=== PATIENT | female | born 1935 | race Caucasian/White ===

== ENCOUNTER 2016-08-20 11:16 | Inpatient (IN) | payer MEDICARE ==
[2016-08-20] MEDS ORDERED: ALBUTEROL NEBULIZED 2.5 MG/3 ML INHALATION STA (11:36)
[2016-08-20] MEDS ORDERED: IPRATROPIUM 0.5 MG/2.5 ML NEBU INHALATION STA (11:36)
[2016-08-20] MEDS ORDERED: methylPREDNISolone SOD SUCCI 125 MG/2 ML VIAL IV STA (11:36)
--- NOTE | 2016-08-20 11:46 | ED ---
General Adult HPI - General Chief complaint: Shortness of Breath Stated complaint: JAY Time Seen by Provider: 08/20/16 11:36 Source: patient, RN notes reviewed, old records reviewed Mode of arrival: ambulatory Limitations: no limitations - History of Present Illness Initial comments: This is a 80-year-old female ER for evaluation. This patient presents for evaluation of shortness of breath, severe shortness of a cough congestion, patient has history of COPD and high blood pressure. Denies chest pain. Patient was of breath has been getting progressively worse is debris into his at home with no help. Patient also complains of chest pain. Chest pain related to cough and congestion, chest pain related to difficulty breathing. Patient denies significant recent hospitalization - Related Data Home Medications Medication Instructions Recorded Confirmed Carvedilol [Coreg] 25 mg PO BID 08/20/16 08/20/16 Fluticasone/Vilanterol [Breo 1 inhalation PO RT-DAILY 08/20/16 08/20/16 Ellipta 100-25 Mcg Inhaler] Lisinopril [Prinivil] 20 mg PO BID 08/20/16 08/20/16 clonazePAM [KlonoPIN] 0.25 mg PO DAILY PRN 08/20/16 08/20/16 Allergies Allergy/AdvReac Type Severity Reaction Status Date / Time morphine AdvReac Hallucinati Verified 08/20/16 11:40 ons Review of Systems ROS Statement: Those systems with pertinent positive or pertinent negative responses have been documented in the HPI. ROS Other: All systems not noted in ROS Statement are negative. Past Medical History Past Medical History: COPD, Hypertension History of Any Multi-Drug Resistant Organisms: None Reported Past Surgical History: Hysterectomy Additional Past Surgical History / Comment(s): carotid end. Past Psychological History: No Psychological Hx Reported Smoking Status: Light tobacco smoker Past Alcohol Use History: Rare Past Drug Use History: None Reported General Exam Limitations: no limitations General appearance: alert, in no apparent distress, anxious, in distress Head exam: Present: atraumatic, normocephalic, normal inspection Eye exam: Present: normal appearance, PERRL, EOMI. Absent: scleral icterus, conjunctival injection, periorbital swelling ENT exam: Present: normal exam, mucous membranes moist Neck exam: Present: normal inspection. Absent: tenderness, meningismus, lymphadenopathy Respiratory exam: Present: normal lung sounds bilaterally, respiratory distress , wheezes, accessory muscle use, decreased breath sounds, prolonged expiratory. Absent: rales, rhonchi, stridor Cardiovascular Exam: Present: regular rate, normal rhythm, normal heart sounds. Absent: systolic murmur, diastolic murmur, rubs, gallop, clicks GI/Abdominal exam: Present: soft, normal bowel sounds. Absent: distended, tenderness, guarding, rebound, rigid Extremities exam: Present: normal inspection, full ROM, normal capillary refill. Absent: tenderness, pedal edema, joint swelling, calf tenderness Back exam: Present: normal inspection Neurological exam: Present: alert, oriented X3, CN II-XII intact Psychiatric exam: Present: normal affect, normal mood Skin exam: Present: warm, dry, intact, normal color. Absent: rash Course Vital Signs 08/20/16 08/20/16 08/20/16 11:27 11:56 11:59 Temperature 98.4 F Pulse Rate 80 78 Respiratory 22 20 Rate Blood Pressure 225/90 O2 Sat by Pulse 86 L Oximetry 08/20/16 08/20/16 08/20/16 12:07 12:20 12:37 Temperature Pulse Rate 74 78 74 Respiratory 20 20 Rate Blood Pressure 210/89 204/126 O2 Sat by Pulse 96 98 Oximetry 08/20/16 08/20/16 12:55 13:04 Temperature 98.2 F Pulse Rate 80 71 Respiratory 18 Rate Blood Pressure 168/74 O2 Sat by Pulse 94 L Oximetry - Reevaluation(s) Reevaluation #1: 08/20/16 13:52 Patient with minimal improvement prolonged angina, past EKG Findings - EKG Comments: EKG Findings:: EKG shows normal sinus rhythm rate of 76, OH 204, QRS 100, QTC 452 Medical Decision Making - Medical Decision Making 80 female in the ER for evaluation of shortness of breath severe shortness breath history of COPD, severe COPD exacerbation at this time. Patient will be made for prolonged treatments and steroids, IV resuscitation. - Lab Data Result diagrams: 08/20/16 12:15 08/20/16 12:15 Lab Results 08/20/16 08/20/16 08/20/16 Range/Units 12:15 12:15 12:15 WBC 11.5 H (3.8-10.6) k/uL RBC 4.88 (3.80-5.40) m/uL Hgb 12.4 (11.4-16.0) gm/dL Hct 39.3 (34.0-46.0) % MCV 80.4 (80.0-100.0) fL MCH 25.3 (25.0-35.0) pg MCHC 31.5 (31.0-37.0) g/dL RDW 18.1 H (11.5-15.5) % Plt Count 312 (150-450) k/uL Neutrophils % 61 % Lymphocytes % 17 % Monocytes % 16 % Eosinophils % 2 % Basophils % 1 % Neutrophils # 6.9 (1.3-7.7) k/uL Lymphocytes # 2.0 (1.0-4.8) k/uL Monocytes # 1.8 H (0-1.0) k/uL Eosinophils # 0.2 (0-0.7) k/uL Basophils # 0.1 (0-0.2) k/uL Manual Slide Review Performed Poikilocytosis (manual Present Anisocytosis Slight Microcytosis Slight PT (9.0-12.0) sec INR (<1.1) APTT (22.0-30.0) sec Sodium 138 (137-145) mmol/L Potassium 4.5 (3.5-5.1) mmol/L Chloride 95 L (98-107) mmol/L Carbon Dioxide 32 H (22-30) mmol/L Anion Gap 11 mmol/L BUN 10 (7-17) mg/dL Creatinine 0.48 L (0.52-1.04) mg/dL Est GFR (MDRD) Af Amer >60 (>60 ml/min/1.73 sqM) Est GFR (MDRD) Non-Af >60 (>60 ml/min/1.73 sqM) Glucose 109 H (74-99) mg/dL Calcium 9.6 (8.4-10.2) mg/dL Magnesium 2.2 (1.6-2.3) mg/dL Total Bilirubin 0.9 (0.2-1.3) mg/dL AST 22 (14-36) U/L ALT 26 (9-52) U/L Alkaline Phosphatase 75 (38-126) U/L Total Creatine Kinase 42 (30-135) U/L CK-MB (CK-2) 1.4 (0.0-2.4) ng/mL CK-MB (CK-2) Rel Index 3.3 Troponin I <0.012 (0.000-0.034) ng/mL NT-Pro-B Natriuret Pep pg/mL Total Protein 7.2 (6.3-8.2) g/dL Albumin 4.2 (3.5-5.0) g/dL 08/20/16 08/20/16 Range/Units 12:15 12:15 WBC (3.8-10.6) k/uL RBC (3.80-5.40) m/uL Hgb (11.4-16.0) gm/dL Hct (34.0-46.0) % MCV (80.0-100.0) fL MCH (25.0-35.0) pg MCHC (31.0-37.0) g/dL RDW (11.5-15.5) % Plt Count (150-450) k/uL Neutrophils % % Lymphocytes % % Monocytes % % Eosinophils % % Basophils % % Neutrophils # (1.3-7.7) k/uL Lymphocytes # (1.0-4.8) k/uL Monocytes # (0-1.0) k/uL Eosinophils # (0-0.7) k/uL Basophils # (0-0.2) k/uL Manual Slide Review Poikilocytosis (manual Anisocytosis Microcytosis PT 11.3 (9.0-12.0) sec INR 1.1 (<1.1) APTT 25.3 (22.0-30.0) sec Sodium (137-145) mmol/L Potassium (3.5-5.1) mmol/L Chloride (98-107) mmol/L Carbon Dioxide (22-30) mmol/L Anion Gap mmol/L BUN (7-17) mg/dL Creatinine (0.52-1.04) mg/dL Est GFR (MDRD) Af Amer (>60 ml/min/1.73 sqM) Est GFR (MDRD) Non-Af (>60 ml/min/1.73 sqM) Glucose (74-99) mg/dL Calcium (8.4-10.2) mg/dL Magnesium (1.6-2.3) mg/dL Total Bilirubin (0.2-1.3) mg/dL AST (14-36) U/L ALT (9-52) U/L Alkaline Phosphatase (38-126) U/L Total Creatine Kinase (30-135) U/L CK-MB (CK-2) (0.0-2.4) ng/mL CK-MB (CK-2) Rel Index Troponin I (0.000-0.034) ng/mL NT-Pro-B Natriuret Pep 2540 pg/mL Total Protein (6.3-8.2) g/dL Albumin (3.5-5.0) g/dL Critical Care Time Critical Care Time: Yes Total Critical Care Time: 31 Disposition Clinical Impression: Acute exacerbation of chronic obstructive airways disease, Hypoxia Disposition: ADMITTED IP TO THIS HOSP Condition: Fair Referrals: Graeme Harkins MD [Primary Care Provider] - 1-2 days
[2016-08-20] MEDS ORDERED: ENALAPRILAT 1.25 MG/ML 1 ML VIAL IVP STA (12:08)
[2016-08-20] MEDS ORDERED: HYDROmorphone 1 MG/ML 1 ML SYRINGE IVP STA (12:08)
[2016-08-20 12:21] LABS: Anisocytosis Slight; Basophils # (A) 0.1 k/uL (0-0.2); Basophils % (A) 1 %; CHCM 32.3; Eosinophils # (A) 0.2 k/uL (0-0.7); Eosinophils % (A) 2 %; HCT 39.3 % (34.0-46.0); HDW 2.78; HGB 12.4 gm/dL (11.4-16.0); Luc # (Auto) 0.48; Luc % (Auto) 4; Lymphocytes % (A) 17 %; MCH 25.3 pg (25.0-35.0); MCHC 31.5 g/dL (31.0-37.0); MCV 80.4 fL (80.0-100.0); Mean Platelet Volume 7.4; Microcytosis Slight; Monocytes # (A) 1.8 k/uL (0-1.0); Monocytes % (A) 16 %; Neutrophils # (A) 6.9 k/uL (1.3-7.7); Neutrophils % (A) 61 %; RBC 4.88 m/uL (3.80-5.40); RDW 18.1 % (11.5-15.5); WBC 11.5 k/uL (3.8-10.6); WBC (Perox) 11.54
[2016-08-20 12:32] LABS: ALT 26 U/L (9-52); AST 22 U/L (14-36); Alkaline Phosphatase 75 U/L (38-126); Anion Gap 11 mmol/L; Blood Urea Nitrogen 10 mg/dL (7-17); Calcium 9.6 mg/dL (8.4-10.2); Carbon Dioxide 32 mmol/L (22-30); Chloride 95 mmol/L (98-107); Glucose 109 mg/dL (74-99); Magnesium 2.2 mg/dL (1.6-2.3); Non-African American GFR(MDRD) >60 (>60 ml/min/1.73 sqM); Potassium 4.5 mmol/L (3.5-5.1); Sodium 138 mmol/L (137-145); Total Bilirubin 0.9 mg/dL (0.2-1.3); Total Protein 7.2 g/dL (6.3-8.2)
[2016-08-20 12:34] LABS: INR 1.1 (<1.1); Partial Thromboplastin Time 25.3 sec (22.0-30.0); Prothrombin Time 11.3 sec (9.0-12.0)
[2016-08-20 12:43] LABS: Creatine Kinase 42 U/L (30-135)
[2016-08-20 12:56] LABS: Creatine Kinase MB 1.4 ng/mL (0.0-2.4); Troponin I <0.012 ng/mL (0.000-0.034)
[2016-08-20 13:06] LABS: Manual Review Performed
--- NOTE | 2016-08-20 13:24 | XR ---
EXAMINATION TYPE: XR chest 2V DATE OF EXAM: 08/20/2016 1:18 PM COMPARISON: 08/19/2010 TECHNIQUE: PA and lateral views submitted. HISTORY: Difficulty breathing FINDINGS: The lungs are clear and there is no pneumothorax, pleural effusion, or focal pneumonia. Hyperinflati on suggests COPD and there is apical pleural-based thickening bilaterally. Degenerative change of the spine noted. Atherosclerotic change aorta. Arthropathy of the shoulder. IMPRESSION: 1. No acute process.
[2016-08-20] MEDS: SODIUM CHLORIDE 0.9% 1,000 ML IV SCH ×2 (14:38→23:33)
[2016-08-20] MEDS: IPRATROPIUM-ALBUTEROL 3 ML NEB INHALATION SCH ×2 (15:52→19:13)
[2016-08-20] MEDS: methylPREDNISolone SOD SUCCI 125 MG/2 ML VIAL IV SCH ×2 (17:42→23:33)
[2016-08-20] MEDS ORDERED: IPRATROPIUM-ALBUTEROL 3 ML NEB INHALATION PRN (19:09)
[2016-08-21] MEDS: methylPREDNISolone SOD SUCCI 125 MG/2 ML VIAL IV SCH ×3 (06:31→17:15)
[2016-08-21] MEDS: IPRATROPIUM-ALBUTEROL 3 ML NEB INHALATION SCH ×4 (07:34→20:24)
[2016-08-21] MEDS: LISINOPRIL 20 MG TAB PO SCH ×2 (09:39→21:47)
[2016-08-21] MEDS: FAMOTIDINE 20 MG TAB PO SCH ×2 (09:39→22:17)
[2016-08-21] MEDS: ENOXAPARIN 40 MG/0.4 ML SYRINGE SQ SCH ×2 (09:39→09:41)
[2016-08-21] MEDS: CARVEDILOL 12.5 MG TAB PO SCH ×2 (09:39→17:14)
[2016-08-21] MEDS: SODIUM CHLORIDE 0.9% 1,000 ML IV SCH ×2 (09:39→21:49)
[2016-08-21 13:41] LABS: Glucose,Whole Blood 119 mg/dL (75-99)
[2016-08-21] MEDS ORDERED: amLODIPine 5 MG TAB PO STA (14:01)
[2016-08-21] MEDS ORDERED: NICOTINE 14MG/24HR PATCH TRANSDERM STA (14:03)
--- NOTE | 2016-08-21 14:07 | P.HPIM ---
History of Present Illness H&P Date: 08/21/16 Chief Complaint: Shortness of breath with congestion Patient is a 80-year-old female, patient of Dr. Harkins in the outpatient setting, with a medical history significant for COPD, hypertension, osteoarthritis, glaucoma, anxiety, and nicotine dependence. Patient currently uses 2 L of oxygen at night. Patient presented to the emergency department with complaints of shortness of breath, cough, congestion, and chest discomfort with coughing. No histories of fevers, chills, nausea, vomiting, or abdominal pain. Chest x-ray with evidence of COPD without pleural effusion or focal pneumonia. Admission labs with evidence of mild leukocytosis with elevated monocytes, troponin less than 0.012, BNP 2540. Blood pressure on admission 225/ 90, oxygen saturation 86% on room air. Patient was started on IV Solu-Medrol, nebulized updraft treatments, given 1 dose of Dilaudid, 1 dose of IV Vasotec, and admitted to the medical floor with consult to Dr. Ruiz for pulmonary service. Upon examination, patient is sitting at the side of the bed and is very tearful and anxious particularly about the possibility of not being able to return to work on . Patient reports improvement in breathing. Patient reports nonproductive cough. Denies fevers, chills, nausea, vomiting, shortness of breath, chest pain, or abdominal pain. Denies leg swelling. Denies constipation or diarrhea. Denies dysuria, urgency, or hematuria. Blood pressure 166/76 this morning. Patient remains on 3 L nasal cannula with adequate saturation of 90%. Afebrile. Past Medical History Past Medical History: COPD, Eye Disorder, Hypertension, Osteoarthritis (OA) Additional Past Medical History / Comment(s): O2 2 LITERS N/C AT HS, BEGINNING OF GLAUCOMA History of Any Multi-Drug Resistant Organisms: None Reported Past Surgical History: Hysterectomy Additional Past Surgical History / Comment(s): LT carotid end. Past Anesthesia/Blood Transfusion Reactions: No Reported Reaction Past Psychological History: No Psychological Hx Reported Smoking Status: Current every day smoker Past Alcohol Use History: Rare Additional Past Alcohol Use History / Comment(s): WHEN ASKED HOW LONG SHE HAS SMOKED FOR STATED "TOO LONG PACK OR MORE PER DAY" BUT SINCE DECEMBER HAD GONE DOWN TO 1/2 PPD AND NONE IN PAST 3 DAYS SINCE DIFF BREATHING. Past Drug Use History: None Reported - Past Family History Father Family Medical History: No Reported History Mother Additional Family Medical History / Comment(s): GALLBLADDER PROBLEMS Sister(s) Family Medical History: Cancer Additional Family Medical History / Comment(s): NOT SURE TYPE Medications and Allergies Home Medications Medication Instructions Recorded Confirmed Type Carvedilol [Coreg] 25 mg PO BID 08/20/16 08/20/16 History Fluticasone/Vilanterol [Breo 1 inhalation PO RT-DAILY 08/20/16 08/20/16 History Ellipta 100-25 Mcg Inhaler] Lisinopril [Prinivil] 20 mg PO BID 08/20/16 08/20/16 History clonazePAM [KlonoPIN] 0.25 mg PO DAILY PRN 08/20/16 08/20/16 History Allergies Allergy/AdvReac Type Severity Reaction Status Date / Time morphine AdvReac Hallucinati Verified 08/20/16 11:40 ons Physical Exam Vitals: Vital Signs Temp Pulse Pulse Pulse Resp BP BP 08/21/16 11:13 96 08/21/16 11:05 92 08/21/16 08:00 78 81 18 08/21/16 07:45 96 08/21/16 07:37 88 08/21/16 07:00 96.5 F L 81 18 166/76 08/21/16 01:33 84 08/21/16 01:24 84 08/20/16 23:00 97.2 F L 76 16 173/73 08/20/16 19:23 84 08/20/16 19:17 87 08/20/16 16:21 97.1 F L 78 16 161/89 08/20/16 16:05 80 08/20/16 15:55 76 08/20/16 14:38 98.4 F 72 16 187/83 Pulse Ox 08/21/16 11:13 08/21/16 11:05 08/21/16 08:00 08/21/16 07:45 08/21/16 07:37 08/21/16 07:00 90 L 08/21/16 01:33 08/21/16 01:24 08/20/16 23:00 97 08/20/16 19:23 08/20/16 19:17 08/20/16 16:21 95 08/20/16 16:05 08/20/16 15:55 08/20/16 14:38 93 L Intake and Output 08/20/16 08/21/16 08/21/16 22:59 06:59 14:59 Other: Voiding Method Toilet Toilet # Voids 1 1 GENERAL: Pt awake and alert, well-nourished, and in no acute distress. HEAD: Atraumatic, normocephalic. EYES: Pupils equal and round. Sclera anicteric, conjunctiva are normal. ENT: Moist mucous membranes. NECK: Supple without lymphadenopathy or JVD. LUNGS: Breath sounds coarse to auscultation bilaterally. No wheezes, rales, or rhonchi. HEART: Heart S1, S2, no S3 or S4. Regular rate and rhythm. No murmurs, rubs or gallops. ABDOMEN: Soft, nontender, nondistended, normoactive bowel sounds. No guarding, no rebound. No masses or organomegaly appreciated. EXTREMITIES: Palpable peripheral pulses. No edema. No calf tenderness. NEUROLOGICAL: Pt oriented x 3. No focal deficits. Strength and sensation grossly intact. PSYCH: Anxious. SKIN: Warm, dry, intact. Normal turgor. No rashes or lesions. Results CBC & Chem 7: 08/20/16 12:15 08/20/16 12:15 Labs: Abnormal Lab Results - Last 24 Hours (Table) 08/21/16 Range/Units 13:38 POC Glucose (mg/dL) 119 H (75-99) mg/dL Chest x-ray: report reviewed Thrombosis Risk Factor Assmnt - DVT/VTE Prophylaxis DVT/VTE Prophylaxis: Pharmacologic Prophylaxis ordered, Mechanical Prophylaxis ordered - Choose All That Apply Any of the Below Risk Factors Present?: Yes Each Factor Represents 1 point: Abnormal pulmonary function (COPD) Other Risk Factors: Yes Each Risk Factor Represents 3 Points: Age 75 years or older Other congenital or acquired thrombophilia - If yes, enter type in comment: No Thrombosis Risk Factor Assessment Total Risk Factor Score: 4 Thrombosis Risk Factor Assessment Level: Moderate Risk Assessment and Plan Plan: Impression and plan: 1. Exacerbation of chronic obstructive pulmonary disease. Pulmonary service consulted, recommendations pending. Continue inhaled and systemic steroids, nebulized updraft treatments, and IV hydration. 2. Acute hypoxic respiratory failure. Continue supplemental oxygen to keep oxygen saturation greater than 92%. 3. Hypertension. Continue lisinopril 20 mg by mouth twice a day. Continue Coreg 25 mg by mouth before meals twice a day. We'll add Norvasc 5 mg for better blood pressure control. 4. Anxiety. Continue Klonopin pain 0.25 mg by mouth daily when necessary. 5. Glaucoma. 6. Nicotine dependence. Smoking cessation encouraged. Will start nicotine patch. 7. Peripheral arterial disease. 8. GI prophylaxis. Continue Pepcid 20 mg by mouth twice a day. 9. DVT prophylaxis. Continue Lovenox 40 mg subcu daily. 10. Repeat CBC and BMP in a.m. The above impression and plan have been discussed and directed by Dr. Harkins. Bobby WILSON acting as scribe for Dr. Harkins.
[2016-08-21] MEDS: clonazePAM 0.5 MG TAB PO PRN (14:36)
--- NOTE | 2016-08-21 17:05 | P.CNPUL ---
History of Present Illness Consult date: 08/21/16 Requesting physician: Graeme Harkins Reason for consult: COPD Chief complaint: Sinus congestion, shortness of breath History of present illness: This is a very pleasant 80-year-old female patient who follows with Dr. Harkins as her primary care physician. She has a history of hypertension and chronic obstructive pulmonary disease. She has continued and ongoing tobacco dependence. She wears nighttime oxygen. She is maintained on Breo in the outpatient setting. She presented here yesterday after being seen in the office for complaints of increasing shortness of breath. She was somewhat hypoxic at 86% on room air. Her chest x-ray did not reveal any acute pulmonary process. Influenza screen is negative. She was admitted for COPD exacerbation. She is seen today in consultation on the regular medical floor. She is awake and alert in no acute distress. She states she started breathing better today as compared to yesterday. She is somewhat anxious and teary-eyed for being here as she has a part-time job. She denies any fever, chills or night sweats. No hemoptysis. A productive cough of white to clear sputum. Currently afebrile. Review of Systems GENERAL EXAM: Alert, active, comfortable in no apparent distress. HEAD: Normocephalic. EYES: Normal reaction of pupils, equal size. NOSE: Clear with pink turbinates. THROAT: No erythema or exudates. NECK: No masses, no JVD. CHEST: No chest wall deformity. LUNGS: Equal air entry with no end expiratory wheeze. Diminished. CVS: S1 and S2 normal with no audible murmurs, regular rhythm. ABDOMEN: No hepatosplenomegaly, normal bowel sounds, no guarding or rigidity. SPINE: No scoliosis or deformity SKIN: No rashes CENTRAL NERVOUS SYSTEM: No focal deficits, tone is normal in all 4 extremities. Extremities: There is no significant peripheral edema. No clubbing, no cyanosis. Peripheral pulses are intact. Past Medical History Past Medical History: COPD, Eye Disorder, Hypertension, Osteoarthritis (OA) Additional Past Medical History / Comment(s): O2 2 LITERS N/C AT HS, BEGINNING OF GLAUCOMA History of Any Multi-Drug Resistant Organisms: None Reported Past Surgical History: Hysterectomy Additional Past Surgical History / Comment(s): LT carotid end. Past Anesthesia/Blood Transfusion Reactions: No Reported Reaction Past Psychological History: No Psychological Hx Reported Smoking Status: Current every day smoker Past Alcohol Use History: Rare Additional Past Alcohol Use History / Comment(s): WHEN ASKED HOW LONG SHE HAS SMOKED FOR STATED "TOO LONG PACK OR MORE PER DAY" BUT SINCE DECEMBER HAD GONE DOWN TO 1/2 PPD AND NONE IN PAST 3 DAYS SINCE DIFF BREATHING. Past Drug Use History: None Reported - Past Family History Father Family Medical History: No Reported History Mother Additional Family Medical History / Comment(s): GALLBLADDER PROBLEMS Sister(s) Family Medical History: Cancer Additional Family Medical History / Comment(s): NOT SURE TYPE Medications and Allergies Home Medications Medication Instructions Recorded Confirmed Type Carvedilol [Coreg] 25 mg PO BID 08/20/16 08/20/16 History Fluticasone/Vilanterol [Breo 1 inhalation PO RT-DAILY 08/20/16 08/20/16 History Ellipta 100-25 Mcg Inhaler] Lisinopril [Prinivil] 20 mg PO BID 08/20/16 08/20/16 History clonazePAM [KlonoPIN] 0.25 mg PO DAILY PRN 08/20/16 08/20/16 History Allergies Allergy/AdvReac Type Severity Reaction Status Date / Time morphine AdvReac Hallucinati Verified 08/20/16 11:40 ons Physical Exam Vitals: Vital Signs Temp Pulse Pulse Pulse Resp BP Pulse Ox 08/21/16 15:28 88 08/21/16 15:19 88 08/21/16 15:00 96.7 F L 84 16 178/71 96 08/21/16 11:13 96 08/21/16 11:05 92 08/21/16 08:00 78 81 18 08/21/16 07:45 96 08/21/16 07:37 88 08/21/16 07:00 96.5 F L 81 18 166/76 90 L 08/21/16 01:33 84 08/21/16 01:24 84 08/20/16 23:00 97.2 F L 76 16 173/73 97 08/20/16 19:23 84 08/20/16 19:17 87 Intake and Output 08/21/16 08/21/16 08/21/16 06:59 14:59 22:59 Other: Voiding Method Toilet # Voids 1 3 Results - Laboratory Findings CBC and BMP: 08/20/16 12:15 08/20/16 12:15 PT/INR, D-dimer PT 11.3 sec (9.0-12.0) 08/20/16 12:15 INR 1.1 (<1.1) 08/20/16 12:15 Abnormal lab findings: Abnormal Labs 08/21/16 13:38 POC Glucose (mg/dL) 119 H - Diagnostic Findings Chest x-ray: image reviewed (COPD. No acute pulmonary process.) Assessment and Plan Plan: Impression: #1 Acute exacerbation of chronic obstructive pulmonary disease. #2 Acute on chronic hypoxic respiratory failure. Utilizes oxygen at home in the evenings. #3 Chronic and ongoing tobacco dependence. #4 Hypertension. #5 Anxiety. Plan: The patient was seen and evaluated by Dr. Ruiz. Her chest x-ray and labs were reviewed. We'll continue her current medications including bronchodilators 4 times a day and when necessary, Symbicort, IV Solu-Medrol. She is educated regarding the importance of complete smoking cessation and a NicoDerm patch is in place. She is on Lovenox for DVT prophylaxis and Pepcid for GI prophylaxis. She would benefit from an outpatient workup including full pulmonary function testing to evaluate the severity of her COPD and make recommendations regarding maintenance medications in addition to her Breo. We' ll increase her activity as tolerated. We will continue to follow and make further recommendations based on her clinical status.
[2016-08-21 17:07] LABS: Glucose,Whole Blood 160 mg/dL (75-99)
[2016-08-21] MEDS: SYMBICORT 80-4.5 MCG INHALER INHALATION SCH (20:23)
[2016-08-21 21:38] LABS: Glucose,Whole Blood 142 mg/dL (75-99)
[2016-08-21] MEDS: INSULIN LISPRO (humaLOG) 300 UNIT/3 ML VIAL SQ SCH (21:51)
[2016-08-22] MEDS: methylPREDNISolone SOD SUCCI 125 MG/2 ML VIAL IV SCH ×4 (00:44→17:27)
[2016-08-22 07:34] LABS: Glucose,Whole Blood 139 mg/dL (75-99)
[2016-08-22] MEDS: IPRATROPIUM-ALBUTEROL 3 ML NEB INHALATION SCH ×4 (08:15→16:18)
[2016-08-22] MEDS: SYMBICORT 80-4.5 MCG INHALER INHALATION SCH (08:16)
[2016-08-22] MEDS: CARVEDILOL 12.5 MG TAB PO SCH (08:29)
[2016-08-22] MEDS: ENOXAPARIN 40 MG/0.4 ML SYRINGE SQ SCH (08:29)
[2016-08-22] MEDS: FAMOTIDINE 20 MG TAB PO SCH (08:29)
[2016-08-22] MEDS: NICOTINE 14MG/24HR PATCH TRANSDERM SCH ×2 (08:29→08:35)
[2016-08-22] MEDS: SODIUM CHLORIDE 0.9% 1,000 ML IV SCH ×2 (08:30→17:26)
[2016-08-22] MEDS: INSULIN LISPRO (humaLOG) 300 UNIT/3 ML VIAL SQ SCH ×3 (08:30→17:26)
[2016-08-22] MEDS: LISINOPRIL 20 MG TAB PO SCH (08:30)
[2016-08-22 09:00] LABS: Anisocytosis Slight; Basophils % (A) 0 %; CH 25.6; CHCM 30.7; Eosinophils % (A) 0 %; HCT 37.2 % (34.0-46.0); HDW 2.64; HGB 11.5 gm/dL (11.4-16.0); Hypochromasia Slight; Luc # (Auto) 0.09; Luc % (Auto) 0; Lymphocytes # (A) 1.5 k/uL (1.0-4.8); Lymphocytes % (A) 7 %; MCH 25.7 pg (25.0-35.0); MCHC 30.8 g/dL (31.0-37.0); MCV 83.5 fL (80.0-100.0); Mean Platelet Volume 7.6; Microcytosis Slight; Monocytes # (A) 0.5 k/uL (0-1.0); Monocytes % (A) 2 %; Neutrophils # (A) 19.5 k/uL (1.3-7.7); Neutrophils % (A) 90 %; RBC 4.46 m/uL (3.80-5.40); RDW 18.2 % (11.5-15.5); WBC 21.6 k/uL (3.8-10.6); WBC (Perox) 23.21
[2016-08-22] MEDS ORDERED: amLODIPine 5 MG TAB PO SCH (09:00)
[2016-08-22 09:10] LABS: Anion Gap 11 mmol/L; Blood Urea Nitrogen 21 mg/dL (7-17); Calcium 9.5 mg/dL (8.4-10.2); Carbon Dioxide 31 mmol/L (22-30); Chloride 97 mmol/L (98-107); Glucose 214 mg/dL (74-99); Non-African American GFR(MDRD) >60 (>60 ml/min/1.73 sqM); Potassium 4.5 mmol/L (3.5-5.1); Sodium 139 mmol/L (137-145)
[2016-08-22] MEDS: clonazePAM 0.5 MG TAB PO PRN (09:50)
[2016-08-22 12:23] LABS: Glucose,Whole Blood 180 mg/dL (75-99)
--- NOTE | 2016-08-22 15:28 | P.PN ---
Subjective Principal diagnosis: Acute exacerbation of chronic obstructive pulmonary disease. This is a very pleasant 80-year-old female patient who follows with Dr. Harkins as her primary care physician. She has a history of hypertension and chronic obstructive pulmonary disease. She has continued and ongoing tobacco dependence. She wears nighttime oxygen. She is maintained on Breo in the outpatient setting. She presented here yesterday after being seen in the office for complaints of increasing shortness of breath. She was somewhat hypoxic at 86% on room air. Her chest x-ray did not reveal any acute pulmonary process. Influenza screen is negative. She was admitted for COPD exacerbation. She is seen today in consultation on the regular medical floor. The patient is seen again today 08/22/2016 on the regular medical floor. She is awake and alert in no acute distress. She denies any worsening shortness of breath, cough or congestion. She is maintaining good O2 saturations in the upper 90s on 2 L/m per nasal cannula. She has remained afebrile. She is anxious to go home. Objective - Vital Signs Vital signs: Vital Signs Temp 97.5 F L 08/22/16 07:00 Pulse 88 08/22/16 08:30 Resp 18 08/22/16 07:00 BP 149/97 08/22/16 07:00 Pulse Ox 90 L 08/22/16 07:00 Intake & Output 08/21/16 08/22/16 08/22/16 18:59 06:59 18:59 Intake Total 200 Balance 200 Intake: Oral 200 Other: Voiding Method Toilet # Voids 3 1 - Exam GENERAL EXAM: Alert, active, comfortable in no apparent distress. HEAD: Normocephalic. EYES: Normal reaction of pupils, equal size. NOSE: Clear with pink turbinates. THROAT: No erythema or exudates. NECK: No masses, no JVD. CHEST: No chest wall deformity. LUNGS: Equal air entry with no crackles, wheeze, rhonchi or dullness. Diminished. CVS: S1 and S2 normal with no audible murmurs, regular rhythm. ABDOMEN: No hepatosplenomegaly, normal bowel sounds, no guarding or rigidity. SPINE: No scoliosis or deformity SKIN: No rashes CENTRAL NERVOUS SYSTEM: No focal deficits, tone is normal in all 4 extremities. Extremities: There is no significant peripheral edema. No clubbing, no cyanosis. Peripheral pulses are intact. - Labs CBC & Chem 7: 08/22/16 08:30 08/22/16 08:30 Labs: Abnormal Lab Results - Last 24 Hours (Table) 08/21/16 08/21/16 08/22/16 Range/Units 17:04 21:33 07:33 WBC (3.8-10.6) k/uL MCHC (31.0-37.0) g/dL RDW (11.5-15.5) % Neutrophils # (1.3-7.7) k/uL Chloride (98-107) mmol/L Carbon Dioxide (22-30) mmol/L BUN (7-17) mg/dL Glucose (74-99) mg/dL POC Glucose (mg/dL) 160 H 142 H 139 H (75-99) mg/dL 08/22/16 08/22/16 08/22/16 Range/Units 08:30 08:30 12:21 WBC 21.6 H (3.8-10.6) k/uL MCHC 30.8 L (31.0-37.0) g/dL RDW 18.2 H (11.5-15.5) % Neutrophils # 19.5 H (1.3-7.7) k/uL Chloride 97 L (98-107) mmol/L Carbon Dioxide 31 H (22-30) mmol/L BUN 21 H (7-17) mg/dL Glucose 214 H (74-99) mg/dL POC Glucose (mg/dL) 180 H (75-99) mg/dL Assessment and Plan Plan: Impression: #1 Acute exacerbation of chronic obstructive pulmonary disease. #2 Acute on chronic hypoxic respiratory failure. Utilizes oxygen at home in the evenings. #3 Chronic and ongoing tobacco dependence. #4 Hypertension. #5 Anxiety. Plan: The patient was seen and evaluated by Dr. Ruiz. The patient is cleared for discharge from the pulmonary standpoint. We'll convert her from IV Solu-Medrol to prednisone taper 40 mg 4 days, 30 mg 4 days, 20 mg 4 days, 10 mg 4 days then stop. She'll continue with her Albuterol and Breo. She is again educated regarding the importance of complete smoking cessation. She would benefit from a follow-up in our office in 1-2 weeks' time. We'll perform a pulmonary function testing evaluate the severity of her COPD and make recommendations regarding maintenance medications.
[2016-08-22 16:14] VITALS: BP 146/76; RESP 16; TEMP 97.3
--- NOTE | 2016-08-22 16:16 | P.DS ---
Providers Date of admission: 08/20/16 13:50 Expected date of discharge: 08/22/16 Attending physician: Graeme Harkins Consults: 08/21/16 08:29 Consult Physician Urgent Consulting Provider: Mouna Ruiz Reason/Comments: COPD EXACERBATION Do you want consulting provider notified?: Yes Primary care physician: Graeme Harkins [facility] Course: Patient is a 80-year-old female, patient of Dr. Harkins in the outpatient setting, with a medical history significant for COPD, hypertension, osteoarthritis, glaucoma, anxiety, and nicotine dependence. Patient currently uses 2 L of oxygen at night. Patient presented to the emergency department with complaints of shortness of breath, cough, congestion, and chest discomfort with coughing. No histories of fevers, chills, nausea, vomiting, or abdominal pain. Chest x-ray with evidence of COPD without pleural effusion or focal pneumonia. Admission labs with evidence of mild leukocytosis with elevated monocytes, troponin less than 0.012, BNP 2540. Blood pressure on admission 225/ 90, oxygen saturation 86% on room air. Patient was started on IV Solu-Medrol, nebulized updraft treatments, given 1 dose of Dilaudid, 1 dose of IV Vasotec, and admitted to the medical floor with consult to Dr. Ruiz for pulmonary service. Patient improved significantly overnight and was very anxious to be discharged. Patient was cleared for discharge from pulmonary service on a tapered steroid dose with close follow-up with both pulmonary and primary care service in the outpatient setting. Patient was educated on the importance of quitting smoking. Discharge diagnoses: 1. Exacerbation of chronic obstructive pulmonary disease. 2. Acute hypoxic on chronic respiratory failure. 3. Hypertension. 4. Anxiety. 5. Glaucoma. 6. Nicotine dependence. 7. Peripheral arterial disease. 8. Increased random blood sugars, suspect steroid-induced. The above impression and plan have been discussed and directed by Dr. Harkins. Bobby WILSON acting as scribe for Dr. Harkins. Pertinent Studies: EKG; chest x-ray Patient Condition at Discharge: Stable Plan - Discharge Summary New Discharge Prescriptions: Albuterol Sulfate [Proair Hfa] 1 - 2 puff INHALATION Q6HR PRN #1 inhaler PRN Reason: Shortness Of Breath amLODIPine [Norvasc] 5 mg PO DAILY #30 tab predniSONE 0 mg PO DIRECTED #30 tab Discharge Medication List Carvedilol [Coreg] 25 mg PO BID 08/20/16 [History] Fluticasone/Vilanterol [Breo Ellipta 100-25 Mcg Inhaler] 1 inhalation PO RT- DAILY 08/20/16 [History] Lisinopril [Prinivil] 20 mg PO BID 08/20/16 [History] clonazePAM [KlonoPIN] 0.25 mg PO DAILY PRN 08/20/16 [History] Albuterol Sulfate [Proair Hfa] 1 - 2 puff INHALATION Q6HR PRN #1 inhaler [Rx] amLODIPine [Norvasc] 5 mg PO DAILY #30 tab 08/22/16 [Rx] predniSONE 0 mg PO DIRECTED #30 tab 08/22/16 [Rx] Follow up Appointment(s)/Referral(s): Mouna Ruiz MD [STAFF PHYSICIAN] - 08/31/16 1:45 pm Graeme Harkins MD [Primary Care Provider] - 1-2 days Patient Instructions/Handouts: COPD (Chronic Obstructive Pulmonary Disease) (DC ) Discharge Disposition: HOME SELF-CARE
[2016-08-22 16:20] VITALS: PULSE 92
[2016-08-22 17:18] LABS: Glucose,Whole Blood 103 mg/dL (75-99)
== END 2016-08-22 17:49 | disposition home or self-care (01) | DRG 190 ==
LOC: EC 11:16 → 4MS4W 13:50
PROVIDERS: ADMIT Family Medicine; ATTEND Family Medicine
DX: J44.1 Chronic obstructive pulmonary disease with (acute) exacerbation (principal); J96.21 Acute and chronic respiratory failure with hypoxia; Z99.81 Dependence on supplemental oxygen; H40.9 Unspecified glaucoma; I73.9 Peripheral vascular disease, unspecified; I10 Essential (primary) hypertension; F41.9 Anxiety disorder, unspecified; T38.0X5A Adverse effect of glucocorticoids and synthetic analogues, initial encounter; R73.09 Other abnormal glucose; F17.200 Nicotine dependence, unspecified, uncomplicated; D72.829 Elevated white blood cell count, unspecified; M19.90 Unspecified osteoarthritis, unspecified site; Z86.79 Personal history of other diseases of the circulatory system; Z79.899 Other long term (current) drug therapy; Z88.5 Allergy status to narcotic agent; Z79.51 Long term (current) use of inhaled steroids; Z71.6 Tobacco abuse counseling; Z90.710 Acquired absence of both cervix and uterus; Z80.9 Family history of malignant neoplasm, unspecified
CPT/HCPCS: 36415; 71020; 80048; 80053; 82550; 82553; 83735; 83880; 84484; 85025; 85610; 85730; 87502; 93005; 94640; 94644; 96374; 96375; 99291

== ENCOUNTER → 2016-09-18 | Outpatient (CLI) | payer MEDICARE ==
--- NOTE | 2016-09-19 12:12 | ECHOF ---
Referral Reason:I50.32 Heart failure MEASUREMENTS -------- HEIGHT: 162.6 cm WEIGHT: 66.2 kg BP: 191/81 RVIDd: 2.5 cm (< 3.3) IVSd: 1.8 cm (0.6 - 1.1) LVIDd: 3.3 cm (3.9 - 5.3) LVPWd: 1.8 cm (0.6 - 1.1) IVSs: 2.0 cm LVIDs: 2.0 cm LVPWs: 2.2 cm LA Diam: 3.3 cm (2.7 - 3.8) LAESV Index (A-L): 42.11 ml/m Ao Diam: 2.4 cm (2.0 - 3.7) AV Cusp: 1.5 cm (1.5 - 2.6) LA Diam: 3.1 cm (2.7 - 3.8) MV EXCURSION: 9.718 mm (> 18.000) MV EF SLOPE: 38 mm/s (70 - 150) EPSS: 0.4 cm MV E Maury: 1.80 m/s MV DecT: 340 ms MV A Maury: 2.22 m/s MV E/A Ratio: 0.81 AV maxP.90 mmHg AV meanP.88 mmHg RAP: 5.00 mmHg RVSP: 54.59 mmHg FINDINGS -------- Sinus rhythm. This was a technically adequate study. The left ventricular size is normal. There is severe concentric left ventricular hypertrophy. Overall left ventricular systolic function is normal with, an EF between 55 - 60 %. Both the mean atrial pressure as well as the LV end diastolic pressure is elevated 57.57. The right ventricle is normal in size. LA is severely dilated >40 ml/m2 The right atrium is normal in size. Aortic valve is trileaflet and is mildly thickened. There is mild aortic stenosis present. Peak/mean gradient across the Aortic Valve is 19.90mmHg / 8.88mmHg. Moderate mitral annular calcification present. Mild mitral regurgitation is present. The peak and mean MV gradients are 19.15mmHg 10.43mmHg as measured by doppler. Moderate mitral stenosis. Mild tricuspid regurgitation present. There is moderate pulmonary hypertension. The right ventricular systolic pressure, as measured by Doppler, is 54.59mmHg. Trace/mild (physiologic) pulmonic regurgitation. The aortic root size is normal. Normal inferior vena cava with normal inspiratory collapse consistent with estimated right atrial pressure of 5 mmHg. There is no pericardial effusion. CONCLUSIONS -------- 1. Sinus rhythm. 2. Moderate mitral annular calcification present. 3. Mild mitral regurgitation is present. 4. The peak and mean MV gradients are 19.15mmHg 10.43mmHg as measured by doppler. 5. Moderate mitral stenosis. 6. Mild tricuspid regurgitation present. 7. There is moderate pulmonary hypertension. 8. The right ventricular systolic pressure, as measured by Doppler, is 54.59mmHg. 9. Trace/mild (physiologic) pulmonic regurgitation. 10. The aortic root size is normal. 11. Normal inferior vena cava with normal inspiratory collapse consistent with estimated right atrial pressure of 5 mmHg. 12. This was a technically adequate study. 13. There is no pericardial effusion. 14. There is severe concentric left ventricular hypertrophy. 15. Overall left ventricular systolic function is normal with, an EF between 55 - 60 %. 16. Both the mean atrial pressure as well as the LV end diastolic pressure is elevated 57.57. 17. LA is severely dilated >40 ml/m2 18. Aortic valve is trileaflet and is mildly thickened. 19. There is mild aortic stenosis present. 20. Peak/mean gradient across the Aortic Valve is 19.90mmHg / 8.88mmHg. PRIMING MACHINE OPERATOR: Maged Parks RDCS
== END | disposition home or self-care (01) ==
LOC: RADECHMAIN 15:23
PROVIDERS: ATTEND Family Medicine
DX: I50.9 Heart failure, unspecified (principal); I05.2 Rheumatic mitral stenosis with insufficiency; I07.1 Rheumatic tricuspid insufficiency; I35.0 Nonrheumatic aortic (valve) stenosis; I31.3 Pericardial effusion (noninflammatory)
CPT/HCPCS: 93306

== ENCOUNTER → 2016-09-26 | Outpatient (CLI) | payer MEDICARE ==
[2016-09-26 12:09] LABS: Blood Urea Nitrogen 13 mg/dL (7-17); Non-African American GFR(MDRD) >60 (>60 ml/min/1.73 sqM)
--- NOTE | 2016-09-26 13:33 | CT ---
EXAMINATION TYPE: CT chest w con DATE OF EXAM: 09/26/2016 1:08 PM COMPARISON: NONE HISTORY: Patient states she has a solitary nodule in right upper lung per patient CT DLP: 548 mGycm, Automated exposure control for dose reduction was used. CONTRAST: Performed injected with 100 mL of Omnipaque 300. TECHNIQUE: Axial images were obtained at 5 mm thick sections. Reconstructed images are reviewed on [employer] computer in the coronal plane. FINDINGS: Portion of the thyroid visualized is normal. Atelectasis or consolidation is within the lingula. This may be obstructed lingular bronchus. Filling defect within the lingular bronchus may be present. Endobronchial lesion is not excluded. Some paraseptal changes may be in the posterior medial right apex. There is thickening at the bilater al lung apices. Peribronchial thickening is noted on the right middle lobe. Calcifications along the left diaphragm. There is a 0.6 cm spiculated pleural-based density in the right middle lobe. Series 3 image 39 lung w indows. Some thickening along the mediastinal border may also be present. There is an enlarged lymph node in the pretracheal space. Additional smaller pretracheal subcarinal lymph nodes are present. Dense vascular calcification is within the aorta. The ascending aorta diamet er at the level of the main pulmonary artery is 3.3 cm. The main pulmonary artery diameter at the bi furcation is 2.[address] sections are obtained through the upper abdomen. Abdomen is essentially unremarkable. IMPRESSIONS: 1. Suspected endobronchial lesion or obstruction of the lingular bronchus with atelectasis. A distal consolidation or mass is not excluded. 2. Enlarged mediastinal lymph node
== END | disposition home or self-care (01) ==
LOC: RADCTMAIN 11:00
PROVIDERS: ATTEND Internal Medicine Critical Care Medicine
DX: R91.1 Solitary pulmonary nodule (principal); R59.0 Localized enlarged lymph nodes; Z88.5 Allergy status to narcotic agent
CPT/HCPCS: 82565; 84520; 71260; 36415; Q9967

== ENCOUNTER 2016-09-27 13:45 | Emergency (ER) | payer MEDICARE ==
--- NOTE | 2016-09-27 14:38 | ED ---
General Adult HPI - General Chief complaint: Fall Stated complaint: Fall Time Seen by Provider: 09/27/16 14:11 Source: patient, family, RN notes reviewed Mode of arrival: wheelchair Limitations: no limitations - History of Present Illness Initial comments: 80-year-old female presenting for fall at home. Patient states that she was sitting at her kitchen table and got caught in the chair and fell over. She states she landed on the ground and sustained a skin tear to her right forearm. She states she is able to get up afterwards. Her son was home with her at the time. He states she has a history of COPD and still continues to smoke a pack plus of cigarettes per day. Patient states she's been in and out of the hospital over the past year related to breathing issues. She denies any shortness of breath or chest pain at this time. Son states she did complain of some chest pain earlier today, the patient denies any chest pain on examination. Patient does have oxygen at home which she wears at night but refuses to wear during the day. Her son says that she has had several similar falls over the past several months due to low oxygen levels. States patient refused quit smoking ordered wear oxygen. She does follow Dr. Harkins and Dr. White. Patient states she was here yesterday for an outpatient CT Chest. Patient states she does not wish further workup or to stay in the hospital at this time. The patient denies head or neck injury, or blood thinner use. - Related Data Home Medications Medication Instructions Recorded Confirmed Carvedilol [Coreg] 25 mg PO BID 08/20/16 09/27/16 Lisinopril [Prinivil] 20 mg PO BID 08/20/16 09/27/16 clonazePAM [KlonoPIN] 0.25 mg PO DAILY PRN 08/20/16 09/27/16 Albuterol Sulfate [Proair Hfa] 1 - 2 puff INHALATION RT-Q6H PRN 09/27/16 Escitalopram [Lexapro] 10 mg PO DAILY 09/27/16 09/27/16 Previous Rx's Medication Instructions Recorded amLODIPine [Norvasc] 5 mg PO DAILY #30 tab 08/22/16 Allergies Allergy/AdvReac Type Severity Reaction Status Date / Time morphine AdvReac Hallucinati Verified 09/27/16 13:52 ons Review of Systems ROS Statement: Those systems with pertinent positive or pertinent negative responses have been documented in the HPI. ROS Other: All systems not noted in ROS Statement are negative. Past Medical History Past Medical History: COPD, Eye Disorder, Hypertension, Osteoarthritis (OA) Additional Past Medical History / Comment(s): O2 2 LITERS N/C AT HS, BEGINNING OF GLAUCOMA History of Any Multi-Drug Resistant Organisms: None Reported Past Surgical History: Hysterectomy Additional Past Surgical History / Comment(s): LT carotid end. Past Anesthesia/Blood Transfusion Reactions: No Reported Reaction Past Psychological History: No Psychological Hx Reported Smoking Status: Current every day smoker Past Alcohol Use History: Rare Additional Past Alcohol Use History / Comment(s): WHEN ASKED HOW LONG SHE HAS SMOKED FOR STATED "TOO LONG PACK OR MORE PER DAY" BUT SINCE DECEMBER HAD GONE DOWN TO 1/2 PPD AND NONE IN PAST 3 DAYS SINCE DIFF BREATHING. Past Drug Use History: None Reported - Past Family History Father Family Medical History: No Reported History Mother Additional Family Medical History / Comment(s): GALLBLADDER PROBLEMS Sister(s) Family Medical History: Cancer Additional Family Medical History / Comment(s): NOT SURE TYPE General Exam - General Exam Comments Initial Comments: General: Awake and Alert. No acute distress. Does not appear acutely ill. Eyes: ERICKSON, EOM intact. No nystagmus. No scleral icterus. HENT: Atraumatic, normocephalic. Mucous membranes moist. Trachea midline. Neck: The neck is supple, there is no tenderness or JVD. Cardiovascular: Regular rate and rhythm. No murmur, rub, or gallop is appreciated. Distal pulses intact, radial 2+ bilaterally. Respiratory: Lungs are clear to auscultation bilaterally. No wheezes, rales, rhonchi. No respiratory distress. Gastrointestinal: Soft, Nontender. No rebound or guarding. Non-distended. No masses or organomegaly noted. No CVA tenderness. Musculoskeletal: No tenderness. Normal ROM. No gross deformity. No strength deficits. No tenderness or decreased range of motion of the right shoulder elbow, or wrist Neurological: A&Ox3. CN II-XII grossly intact, There are no obvious motor or sensory deficits. Coordination appears grossly intact. Speech is normal. Skin: Skin is warm and dry and no rashes are noted. Right forearm/elbow with skin tear approximately 5 cm x 6 cm. This is superficial without any deep laceration. Psychiatric: Cooperative, appropriate mood & affect, normal judgment. Limitations: no limitations Course Vital Signs 09/27/16 13:48 Temperature 97.5 F L Pulse Rate 76 Respiratory 20 Rate Blood Pressure 132/60 O2 Sat by Pulse 96 Oximetry EKG Findings - EKG Comments: EKG Findings:: EKG 14:43. Sinus rhythm. Rate 76. PO2 20. QRS 106. QT/QTC 404/454. Normal axis. Atrial enlargement. No STEMI. Nonspecific EKG. Similar to prior EKG to 08/20/16. Medical Decision Making - Medical Decision Making 80-year-old female presenting for fall at home. She sustained a skin tear to her right forearm/elbow area, this was reapproximated with Steri-Strips applied after being cleaned. Skin tear was approximated well and appears without infection or active bleeding. EKG was done which shows no acute ischemic process. Son took me aside and states that she has had issues with low oxygen levels over the past year or so. States she refuses to stop smoking or to wear her oxygen during the day. Discussed benefits of smoking cessation with patient although she states she is not willing to stop at this time. Discussed recommendation wear oxygen at all times. Patient does have stable vitals without hypoxia or fever at this time. Patient declines any additional workup at this time. Does not have any evidence of other trauma or injury on exam or indication for additional imaging at this time. CT chest performed yesterday was reviewed with evidence of lingular atelectasis and possible endobronchial lesion around this area. Updated patient and son on results and need for continued follow-up with Dr. White. Patient does not clinically appear to have evidence of pneumonia at this time. Discussed wound care management. Patient appears stable for discharge at this time. Discussed concerning signs and symptoms for immediate return to the ER. Discussed close follow-up with PCP in pulmonology. Patient and son are agreeable with plan and discharge home. - EKG Data -: EKG Interpreted by Me EKG shows normal: sinus rhythm Rate: normal When compared to previous EKG there are: no significant change Interpretation: no acute changes Disposition Clinical Impression: Skin tear of right upper extremity, Fall, Tobacco abuse Disposition: HOME SELF-CARE Condition: Stable Instructions: Fall Prevention for Older Adults (ED), Hypoxia (ED), Skin Tear ( ED) Additional Instructions: Please work to stop smoking. Please wear your oxygen at all times. Please follow up closely with Dr. White and discuss your CT Scan results. Referrals: Graeme Harkins MD [Primary Care Provider] - 1-2 days Time of Disposition: 14:54
[2016-09-27 15:13] VITALS: BP 122/60; PULSE 77; RESP 16; TEMP 98.8
== END 2016-09-27 15:14 | disposition home or self-care (01) ==
LOC: EC 13:45
DX: S51.811A Laceration without foreign body of right forearm, initial encounter (principal); J98.11 Atelectasis; I10 Essential (primary) hypertension; F17.210 Nicotine dependence, cigarettes, uncomplicated; Z79.899 Other long term (current) drug therapy; Z88.5 Allergy status to narcotic agent; Z99.81 Dependence on supplemental oxygen; W23.1XXA Caught, crushed, jammed, or pinched between stationary objects, initial encounter; Y92.000 Kitchen of unspecified non-institutional (private) residence as the place of occurrence of the external cause
CPT/HCPCS: 93005; 99283

== ENCOUNTER 2016-10-17 11:08 | Day surgery (SDC) | payer MEDICARE ==
[2016-10-12 15:05] VITALS: BMI 24.9
[~2016-10-17 11:08] MED LIST: ALBUTEROL NEB (CONC) 2.5 MG/0.5 ML INHALATION ONE; LACTATED RINGERS 1,000 ML IV ONE; LACTATED RINGERS 1,000 ML IV SCH; LIDOCAINE 2% (PF) 20 MG/ML 10ML INHALATION ONE
[2016-10-17 12:24] VITALS: TEMP 98.1
[2016-10-17] MEDS ORDERED: LIDOCAINE 1% 20 ML VIAL (10MG/ML) FOR IV START INTRADERMA ONE (12:28)
[2016-10-17] MEDS ORDERED: PROPOFOL 10 MG/ML 20 ML VIAL IV ONE (13:32)
[2016-10-17] MEDS ORDERED: MIDAZOLAM 2 MG/2 ML VIAL ONE (13:32)
[2016-10-17] MEDS ORDERED: LIDOCAINE 1% INJ 10MG/ML (20 ML MDV) ONE (13:32)
[2016-10-17] MEDS ORDERED: fentaNYL (PF) 50 MCG/ML 2 ML AMP ONE (13:32)
--- NOTE | 2016-10-17 14:03 | P.PCN ---
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 Procedure(s) Performed: Flexible bronchoscopy, bronchial alveolar lavage, transbronchial needle aspirate Anesthesia: MAC Surgeon: Jim White Handle Machine Operator #1: Kerry Rutledge Estimated Blood Loss (ml): 0 Condition: stable Disposition: same day Indications for Procedure: Lingular atelectasis Operative Findings: 80-year-old female patient was brought in for Effexor bronchoscopy based on the results of a recent CAT scan of the chest that showed nonspecific mediastinal lymph nodes and lingular atelectasis. This raises the suspicion for an endobronchial tumor in the involving airways and for that reason a bronchoscopy was indicated This procedure was done under conscious sedation. Anesthetic agents was administered by AUTOCAD DESIGNER at the bedside. After achieving adequate sedation, flexible bronchoscope was inserted to the left nostril and was advanced with Doppler airway. Examination of posterior oropharynx, larynx, vallecula, epiglottis, arytenoids and vocal cords was done. All of these upper airway structures were within normal limits. No obvious abnormalities noted. Vocal cords were fully functional and symmetrical. A total of 2 ML's of 1% lidocaine was applied to the vocal cords and following that the bronchoscope was transferred upper trachea and examination of the tracheal bronchial tree was done. Immediately, it was noted that the patient had a [id number] uptake of bronchomalacia with dynamic obstruction of the airways with expiratory maneuvers and coughing. At this point airway inspection was completed. Trachea was patent within normal limits. Tania was sharp and in the midline. Bilateral mainstem bronchi were patent._Was moved to the left lung and as the bronchoscope was advanced to the distal left mainstem bronchus, there was copious amount of it for secretions noted obstructing the distal airway. At the same time the airways were getting progressively more narrower and there was obvious bronchomalacia involving this airways. Diminished in the left upper lobe bronchus and the lingular segment of the left upper lobe showed significant malacia and there was significant amount of thick rest or secretions occluding this airways. Therapeutic airway suctioning was done after the airways were irrigated with saline. The airway inspection was completed in the lingular segment of the left upper lobe segments were patent without any endobronchial tumors or lesions identified. I think the reason for the atelectasis and lingular segment was secondary to malacia and secretions or mucus inspissation. Examination of the left lower lobe was done. Following that the bronchoscope was moved to the right lung and examination of the right upper lobe, right middle lobe, right lower lobesegments and subsegments were done. These airways were patent and symmetrical left upper lobe area there was evidence of bronchomalacia throughout the patient's airways and the secondary branches. Ultimately, I bronchioloalveolar lavage of the lingular segment was done. A total of 100 mL of fluid was infused and 20 mL resection back in the samples will be sent for microbial analysis and culture. At that of the procedure, I performed chest markedly less but of the right paratracheal lymph node and I took only one pass with my 19-gauge cytology needle. The aspirate was bloody. The samples were sent for cell block and bronchoscope was removed and the patient was stressed to recovery in stable condition. We'll discuss the findings with the patient. We'll continue to follow up in the office.
[2016-10-17 14:38] VITALS: RESP 16
[2016-10-17 15:07] VITALS: BP 159/61; PULSE 79
[2016-10-17 16:44] LABS: RBC, Body Fluid 181500 /uL
== END 2016-10-17 15:37 | disposition home or self-care (01) ==
LOC: ORWHC2ENDO 11:08
PROVIDERS: ATTEND Internal Medicine Critical Care Medicine
DX: J39.8 Other specified diseases of upper respiratory tract (principal); J98.09 Other diseases of bronchus, not elsewhere classified; J44.9 Chronic obstructive pulmonary disease, unspecified; J98.11 Atelectasis; Z99.81 Dependence on supplemental oxygen; F17.210 Nicotine dependence, cigarettes, uncomplicated; I11.0 Hypertensive heart disease with heart failure; I50.32 Chronic diastolic (congestive) heart failure; I73.9 Peripheral vascular disease, unspecified; F41.9 Anxiety disorder, unspecified; Z79.899 Other long term (current) drug therapy; Z88.5 Allergy status to narcotic agent
CPT/HCPCS: 94640; 88108; 88305; 88173; 89050; 87070; 87205; 31629; 31624; J2250; J2001 ×2; J3010; J2704

== ENCOUNTER → 2017-02-20 | Outpatient (CLI) | payer MEDICARE ==
[2017-02-20 11:48] LABS: Blood Urea Nitrogen 13 mg/dL (7-17); Non-African American GFR(MDRD) >60 (>60 ml/min/1.73 sqM)
--- NOTE | 2017-02-20 12:50 | CT ---
EXAMINATION TYPE: CT chest w con DATE OF EXAM: 02/20/2017 COMPARISON: CTA chest September 26, 2016. HISTORY: Atelectasis, COPD per order. Follow-up study per patient. CT DLP: 460 mGycm. Automated Exposure Control for Dose Reduction was Utilized. TECHNIQUE: CT scan of the thorax is performed following with IV Contrast, patient injected with 100 ml mL of Omnipaque 300. FINDINGS: LUNGS: There is background of moderate emphysematous change redemonstrated most prominent in lung api ricarda where there is moderate apical scarring redemonstrated. There is interval resolution of right upp er lobe atelectasis anteriorly. There is near complete interval resolution of medial lingular atelect asis and/or consolidation with minimal residual linear component seen present on axial image 24. Ther e is additional slightly more prominent component inferior to this near axial image 33 with linear sl ightly more triangular-shaped component inferiorly noted. Some additional linear scarring in the left lung base just above diaphragm remains present though is less prominent. Some additional scarring or atelectasis centrally in the right middle lung axial image 28 is redemonstrated and felt stable. No new nodule or mass is present. No pleural effusion or pneumothorax is seen. MEDIASTINUM: Prominent pericarinal lymph node measuring 1.2 x 0.9 cm on axial image 21 and is not sig nificantly changed from 2011 CT. There are no new greater than 1 cm hilar or mediastinal lymph nodes. No cardiomegaly or pericardial effusion is seen. Moderate left atrial dilatation is noted. There is moderate to severe mixed plaque in the visualized aorta extending into branch vessels. OTHER: Osseous structures are demineralized. Moderate multilevel spurring in thoracic spine is redemo nstrated. IMPRESSION: Interval improvement in atelectatic change or chronic scarring/consolidation in the lingu la. There is background moderate emphysematous change with improvement in scattered areas of atelecta sis noted as detailed above. No new suspicious mass or adenopathy is noted.
== END ==
LOC: RADCTMAIN 11:11
PROVIDERS: ATTEND Internal Medicine Critical Care Medicine
DX: J98.11 Atelectasis (principal); J44.9 Chronic obstructive pulmonary disease, unspecified
CPT/HCPCS: 82565; 84520; 71260; 36415; Q9967

== ENCOUNTER → 2019-04-11 | Outpatient (CLI) | payer MEDICARE ==
--- NOTE | 2019-04-11 15:43 | CT ---
EXAMINATION TYPE: CT abdomen wo con DATE OF EXAM: 04/11/2019 COMPARISON: None Chest CT scan 12/05/2018 HISTORY: Epigastric pain, possible hernia CT DLP: 156.8 mGycm Automated exposure control for dose reduction was used. TECHNIQUE: Helical acquisition of images was performed from the lung bases through the top of iliac crest to include entire abdomen. CONTRAST: Performed with Oral Contrast and without IV contrast. FINDINGS: There is small right pleural effusion. There are multiple noncalcified nodular densities in the lower lobes that measure up to 12 mm. There is heterogeneity throughout the liver with multiple low-density poorly marginated masses that m easure up to 4 cm. There are calcifications around the spleen. There is no evidence of a splenic mass . There is no evidence of pancreatic mass. Abdominal aorta is atheromatous. Stomach is intact. There is no adrenal mass. Kidneys have normal size and contour. There is no hydronephrosis. There is 2 mm calculus posterior left kidney. There is 2 cm cortical cyst posterior left kidney. Ureters are n ot dilated. There is no evidence of a bowel obstruction. There are multiple small abdominal para-aort ic lymph nodes that measure up to 1 cm. I see no bony destructive process. There is no lumbar ayanna whit fracture. IMPRESSION: MULTIPLE LOW-DENSITY LIVER LESIONS CONSISTENT WITH DIFFUSE METASTATIC DISEASE. LEFT RENAL CORTICAL CYSTS. NONOBSTRUCTING LEFT RENAL CALCULUS. OLD GRANULOMATOUS DISEASE. CALCIFICAT IONS AROUND THE SPLEEN THAT COULD RELATE TO OLD TRAUMA. THIS APPEARS UNCHANGED. THERE ARE FEW RETROPE RITONEAL LYMPH NODES THAT COULD RELATE TO METASTATIC DISEASE. NUMEROUS LOWER LOBE PULMONARY NODULES SUSPICIOUS FOR METASTATIC DISEASE.
== END | disposition home or self-care (01) ==
LOC: RADCTMAIN 14:36
PROVIDERS: ATTEND Family Medicine
DX: K76.9 Liver disease, unspecified (principal); N20.0 Calculus of kidney; N28.1 Cyst of kidney, acquired; D73.89 Other diseases of spleen; D71 Functional disorders of polymorphonuclear neutrophils; R22.2 Localized swelling, mass and lump, trunk
CPT/HCPCS: 74150

== ENCOUNTER → 2019-04-15 | Outpatient (CLI) | payer MEDICARE ==
[2019-04-15 13:18] LABS: African American GFR (CKD) >90 (>60 ml/min/1.73 sqM); Blood Urea Nitrogen 12 mg/dL (7-17)
--- NOTE | 2019-04-15 15:04 | CT ---
EXAMINATION TYPE: CT chest w con DATE OF EXAM: 04/15/2019 COMPARISON: Chest CT December 05, 2018 and older CTs HISTORY: Pneumonia, unspecified organism CT DLP: 369 mGycm. Automated Exposure Control for Dose Reduction was Utilized. TECHNIQUE: CT scan of the thorax is performed following with IV Contrast, patient injected with 100 ml mL of Isovue 300. FINDINGS: LUNGS: Moderate underlying emphysematous change is redemonstrated most prominent involving the upper lobes. There are new scattered suspicious pulmonary nodules bilaterally most prominent involving the lower lobes. For reference there is 1.2 cm left lower lobe nodule axial image 48. For reference there is 5 mm left upper lobe nodule image 22. For reference there is no right mid lung or hilar nodule me asuring 1.3 x 0.8 cm axial image 28. MEDIASTINUM: There is suspected new right tracheobronchial adenopathy for reference lymph node measur es 2.2 x 1.6 cm size image 30. Prominent subcarinal lymph node axial image 25 is fairly stable. No pericardial effusion is seen. Moderate calcified plaque of the aorta extends into branch vessels. Ca rdiomegaly redemonstrated. Moderate left atrial dilatation noted. Coronary artery calcification is re demonstrated. OTHER: New hepatomegaly with innumerable heterogeneous hypodense masses throughout the liver one of l logan measures 3.7 cm long axis axial image 67. IMPRESSION: 1. No suspicious acute pulmonary process or focal infiltrate. 2. New metastatic neoplasm thought present with multiple hepatic masses and hematogenous spread with pulmonary nodules bilaterally most prominent involving the lower lobes. Findings correlate with CT ab domen study 4 days earlier. Imaging guided random biopsy of liver can be performed for tissue diagnos is if desired.
== END | disposition home or self-care (01) ==
LOC: RADCTMAIN 12:43
PROVIDERS: ATTEND Family Medicine
DX: C78.7 Secondary malignant neoplasm of liver and intrahepatic bile duct (principal); R91.8 Other nonspecific abnormal finding of lung field; Z88.5 Allergy status to narcotic agent
CPT/HCPCS: 82565; 84520; 71260; 36415; Q9967

== ENCOUNTER 2019-04-23 08:50 | Day surgery (SDC) | payer MEDICARE ==
[2019-04-23] MEDS ORDERED: ALPRAZolam 0.25 MG TAB PO STA (09:44)
[2019-04-23 09:46] LABS: Mean Platelet Volume 6.3; Platelet Count 459 k/uL (150-450)
[2019-04-23 09:55] LABS: INR 1.1 (<1.2); Prothrombin Time 11.2 sec (9.0-12.0)
[2019-04-23 11:43] VITALS: RESP 18; TEMP 98.9
[2019-04-23 11:44] VITALS: BP 223/102; PULSE 87
--- NOTE | 2019-04-23 11:49 | US ---
EXAMINATION TYPE: US biopsy liver DATE OF EXAM: 04/23/2019 COMPARISON: NONE HISTORY: Liver masses The procedure was explained to the patient. The risks, complications, benefits, and alternatives wer e discussed and any questions were answered. Informed consent was obtained. The patient's blood pressure was 223/108. Multiple attempts were made at 3 assessing the blood pressu re with persistent markedly elevated blood pressure. The patient 3 referring import specialist was no tified and a immediate appointment with the patient's referring primary doctor was scheduled. IMPRESSION: 1. Deferred liver core biopsy due to severe hypertension.
== END 2019-04-23 10:40 | disposition home or self-care (01) ==
LOC: RADPROMAIN 08:50
PROVIDERS: ATTEND Internal Medicine Hematology & Oncology
DX: C43.9 Malignant melanoma of skin, unspecified (principal); I10 Essential (primary) hypertension; Z53.8 Procedure and treatment not carried out for other reasons
CPT/HCPCS: 47000; 76942; 85049; 85610

== ENCOUNTER → 2019-04-29 | Day surgery (SDC) | payer MEDICARE ==
[2019-04-29 08:24] VITALS: RESP 20; TEMP 97.6
[2019-04-29 08:49] LABS: Mean Platelet Volume 6.7; Platelet Count 378 k/uL (150-450)
[2019-04-29 09:13] LABS: Prothrombin Time 10.8 sec (9.0-12.0)
--- NOTE | 2019-04-29 09:50 | US ---
EXAMINATION TYPE: US biopsy liver DATE OF EXAM: 04/29/2019 HISTORY: Multiple liver masses. FINDINGS: Maximal barrier technique was utilized. The skin overlying a suitable path to one of the l eft lobe liver masses was localized with ultrasound and the overlying skin prepped and draped. Ultra sound was utilized with sterile technique. Lidocaine was used for local anesthesia. A skin sergei was made with a scalpel. An 18-gauge needle was advanced under direct ultrasound guidance and core spec imen obtained of the mass. Specimen submitted in formalin to Pathology. Following the procedure, he mostasis achieved and the patient is discharged in stable condition without complication. IMPRESSION:STATUS POST ULTRASOUND GUIDED CORE BIOPSY OF left lobe liver MASS, PATHOLOGY IS PENDING. THIS PROCEDURE IS PERFORMED BY THE UNDERSIGNED.
[2019-04-29 13:41] VITALS: BP 166/87; PULSE 78
== END | disposition home or self-care (01) ==
LOC: RADPROMAIN 07:43
PROVIDERS: ATTEND Internal Medicine Hematology & Oncology
DX: C78.7 Secondary malignant neoplasm of liver and intrahepatic bile duct (principal); C43.71 Malignant melanoma of right lower limb, including hip
CPT/HCPCS: 36415; 47000; 76942; 85049; 85610; 88307; 88341; 88342

== ENCOUNTER → 2019-05-06 | Outpatient (CLI) | payer MEDICARE ==
--- NOTE | 2019-05-06 13:52 | MR ---
EXAMINATION TYPE: MR brain wo/w con DATE OF EXAM: 05/06/2019 COMPARISON: NONE HISTORY: Melanoma, CHEN TECHNIQUE: Multiplanar, multisequence images of the brain and brainstem is performed without and with IV contras t, utilizing 6.5 mL intravenous Gadavist . FINDINGS: Diffusion weighted images demonstrate no evidence of a recent infarct or other diffusion ab normality. There is a very subtly T1 hyperintense left frontal 0.4 x 0.4 cm lesion that appears and the juarez-whi te matter interface and intra-axial when viewed in 3 planes. Given the known multiple hepatic masses from metastatic melanoma and a T1 hyperintensity of this lesion on sagittal precontrast image 11 meta static melanoma is confirmed. There is an additional enhancing 0.6 x 0.6 cm lesion on postcontrast ax ial series 701 image 13 at the periphery of the head of the caudate nucleus on the left without convi ncing T1 hyperintense precontrast correlate. No restricted diffusion is seen at this location. There is no abnormal T2 signal nor suspicious flair signal at this location and therefore metastasis is als o suspected. A third focus of enhancement measuring 0.6 x 0.6 mm in the right occipital lobe with rona rounding vasogenic edema is seen on FLAIR axial fat-sat image 19 and postcontrast T1 nonfat sat image 18. No midline shift. There is moderate burden nonspecific white matter change with scattered areas of T2/FLAIR hyperintens ity throughout the periventricular and subcortical white matter as well as within the светлана. There is mild mucosal thickening in the ethmoid sinuses. Remaining visualized paranasal sinuses and m astoid air cells are well aerated. No abnormal intraconal enhancement. Globes are symmetric and lense s appear in place. Left vertebral artery is dominant. Major intracranial flow voids appear maintained. There is symmetri c prominence of the peripheral sulci and ventricular system compatible with age-related finding loss. Midline structures are unremarkable. Motion artifact limits the 1 mm slices of the postcontrast T1-weighted images and 4 mm slices were ob tained that are satisfactory. IMPRESSION: 1. Intracranial metastasis. There are 3 subcentimeter enhancing lesions in the left frontal lobe, rig ht occipital lobe and within the caudate nucleus on the left measuring up to 6 mm. Minimal surroundin g vasogenic edema of the right occipital lesion. No midline shift. 2. Moderate burden nonspecific white matter change, most commonly on the basis of chronic microangiop athy. This also involves the светлана. Mild age-related volume loss.
== END | disposition home or self-care (01) ==
LOC: RADMRIMAIN 12:30
PROVIDERS: ATTEND Internal Medicine Hematology & Oncology
DX: R90.89 Other abnormal findings on diagnostic imaging of central nervous system (principal); I73.9 Peripheral vascular disease, unspecified; C79.31 Secondary malignant neoplasm of brain; R51 Headache
CPT/HCPCS: 70553; A9585

== ENCOUNTER 2019-05-18 10:45 | Observation (INO) | payer MEDICARE ==
[2019-05-18] MEDS ORDERED: KETOROLAC 30 MG/ML 1 ML VIAL IVP STA (11:45)
[2019-05-18] MEDS ORDERED: IPRATROPIUM-ALBUTEROL 3 ML NEB INHALATION STA (11:50)
[2019-05-18 12:48] LABS: HCT 39.3 % (34.0-46.0); HGB 12.5 gm/dL (11.4-16.0); Hypochromasia Moderate; MCH 27.4 pg (25.0-35.0); MCHC 31.7 g/dL (31.0-37.0); MCV 86.3 fL (80.0-100.0); Mean Platelet Volume 6.2; Platelet Count 493 k/uL (150-450); RBC 4.56 m/uL (3.80-5.40); RDW 15.7 % (11.5-15.5); WBC 12.2 k/uL (3.8-10.6)
[2019-05-18 12:51] LABS: African American GFR (CKD) >90 (>60 ml/min/1.73 sqM); Albumin 3.5 g/dL (3.5-5.0); Anion Gap 7 mmol/L; Blood Urea Nitrogen 10 mg/dL (7-17); Calcium 8.7 mg/dL (8.4-10.2); Carbon Dioxide 31 mmol/L (22-30); Chloride 96 mmol/L (98-107); Glucose 111 mg/dL (74-99); Non-African American GFR(CKD) >90 (>60 ml/min/1.73 sqM); Sodium 134 mmol/L (137-145); Total Bilirubin 1.8 mg/dL (0.2-1.3)
--- NOTE | 2019-05-18 12:51 | ED ---
Abdominal Pain HPI - General Chief Complaint: Abdominal Pain Stated Complaint: abdominal pain Time Seen by Provider: 05/18/19 11:28 Source: patient Mode of arrival: wheelchair Limitations: no limitations - History of Present Illness Initial Comments: The patient is an 83-year-old female with history of metastatic melanoma, COPD presents to the emergency department with reported abdominal pain. She was diagnosed with metastatic melanoma to the liver one month ago and sees Dr. Briceño in office. She started to Keytruda treatments on Saturday. She felt well on however Saturday she began developing right lower quadrant abdominal pain which radiates around to her back. It is sharp and stabbing in nature. States that it is getting worse. Denies any dysuria, hematuria or difficulty voiding. Denies any constipation, diarrhea, melanotic stools or hematochezia. No abnormal vaginal bleeding or discharge. Patient arrives and is noted to be hypoxic. States that she has chronic hypoxia. States that she refuses to wear oxygen and does not have any available at home. She denies increased worker breathing. No fevers or chills. Admits to nausea without vomiting. Denies any chest pain. No back or flank pain. there are no other alleviating, precipitating or modifying factors - Related Data Home Medications Medication Instructions Recorded Confirmed Latanoprost [Xalatan 0.005%] 1 drop BOTH EYES HS 12/04/18 05/18/19 Umeclidinium Brm/Vilanterol Tr 1 puff INHALATION RT-DAILY 04/17/19 05/18/19 [Anoro Ellipta 62.5-25 Mcg INH] hydrALAZINE HCL 25 mg PO DAILY 04/24/19 05/18/19 Previous Rx's Medication Instructions Recorded Carvedilol [Coreg*] 25 mg PO BID-W/MEALS tab 12/15/18 Ipratropium-Albuterol Nebulize 3 ml INHALATION RT-QID #120 05/19/19 [Duoneb 0.5 mg-3 mg/3 ml Soln] ampul.neb Allergies Allergy/AdvReac Type Severity Reaction Status Date / Time alprazolam [From Xanax] AdvReac Hallucinati Verified 05/18/19 16:40 ons morphine AdvReac Hallucinati Verified 05/18/19 13:35 ons Review of Systems ROS Statement: Those systems with pertinent positive or pertinent negative responses have been documented in the HPI. ROS Other: All systems not noted in ROS Statement are negative. Past Medical History Past Medical History: Cancer, COPD, Eye Disorder, Osteoarthritis (OA), Vascular Disorder Additional Past Medical History / Comment(s): begining of glaucoma, melanoma with mets to liver and brain, leaky heart valves History of Any Multi-Drug Resistant Organisms: None Reported Past Surgical History: Hysterectomy Additional Past Surgical History / Comment(s): LT carotid end., yaneli cataract, plan for liver biopsy for mass OCT Past Anesthesia/Blood Transfusion Reactions: No Reported Reaction Additional Past Anesthesia/Blood Transfusion Reaction / Comment(s): no previous blood transfusion Past Psychological History: Anxiety, Depression Smoking Status: Current every day smoker Past Alcohol Use History: None Reported Past Drug Use History: None Reported - Past Family History Father Family Medical History: No Reported History Mother Additional Family Medical History / Comment(s): GALLBLADDER PROBLEMS Sister(s) Family Medical History: Cancer Additional Family Medical History / Comment(s): NOT SURE TYPE General Exam Limitations: no limitations General appearance: alert, in no apparent distress Head exam: Present: atraumatic, normocephalic Eye exam: Present: PERRL, EOMI ENT exam: Present: mucous membranes dry Neck exam: Absent: tenderness, meningismus Respiratory exam: Present: wheezes, accessory muscle use, decreased breath sounds Cardiovascular Exam: Present: normal rhythm, tachycardia GI/Abdominal exam: Present: soft, tenderness, rigid (right lower quardant). Absent: guarding, rebound Extremities exam: Present: normal inspection, full ROM. Absent: tenderness Back exam: Present: normal inspection, full ROM Neurological exam: Present: alert, oriented X3, CN II-XII intact Psychiatric exam: Present: normal affect, normal mood Skin exam: Present: warm, dry, intact Course Vital Signs 05/18/19 05/18/19 05/18/19 10:55 12:16 12:28 Temperature 99.1 F Pulse Rate 99 101 H 104 H Respiratory 22 Rate Blood Pressure 157/94 O2 Sat by Pulse 83 L Oximetry 05/18/19 05/18/19 15:28 15:48 Temperature Pulse Rate 94 Respiratory 19 Rate Blood Pressure 210/99 163/70 O2 Sat by Pulse 96 Oximetry Medical Decision Making - Medical Decision Making Upon arrival the patient was placed into room 7. Vitals are obtained and the patient is hypoxic at 83%. She is placed on 4 L oxygen with improvement to 92%. She is given a DuoNeb breathing treatment. I did obtain provide the axis. She is given 15 mg of Toradol as she does have ALLERGIES to morphine. I recommended laboratory studies. With the count is 12.2. Platelets 493. D-dimer elevated at 3.46. Sodium 134, potassium 5.2, bilirubin 1.8, alk phos 238. First troponin negative at 0.017 and BNP is 7320. The patient was sent over for a chest CT which demonstrates stable hepatic lesions. No evidence of PE. Progressive metastatic disease to the chest. Small right-sided pleural effusion. CT of the abdomen and pelvis demonstrates hepatomegaly with adrenal lesions however no other acute findings. Her evaluated the patient she does have improvement in her chest pain. She remained hypoxic and therefore did recommend hospital admission. A call discuss the case with Dr. Martin who accepted admission. The patient was then taken to the floor - Lab Data Result diagrams: 05/18/19 12:15 05/18/19 12:15 Lab Results 05/18/19 05/18/19 05/18/19 Range/Units 12:15 12:15 12:15 WBC 12.2 H (3.8-10.6) k/uL RBC 4.56 (3.80-5.40) m/uL Hgb 12.5 (11.4-16.0) gm/dL Hct 39.3 (34.0-46.0) % MCV 86.3 (80.0-100.0) fL MCH 27.4 (25.0-35.0) pg MCHC 31.7 (31.0-37.0) g/dL RDW 15.7 H (11.5-15.5) % Plt Count 493 H (150-450) k/uL Neutrophils % (Manual) 70 % Lymphocytes % (Manual) 13 % Monocytes % (Manual) 17 % Neutrophils # (Manual) 8.54 H (1.3-7.7) k/uL Lymphocytes # (Manual) 1.59 (1.0-4.8) k/uL Monocytes # (Manual) 2.07 H (0-1.0) k/uL Nucleated RBCs 0 (0-0) /100 WBC Manual Slide Review Performed Hypochromasia Moderate PT (9.0-12.0) sec INR (<1.2) APTT (22.0-30.0) sec D-Dimer (<0.60) mg/L FEU Sodium 134 L (137-145) mmol/L Potassium 5.2 H (3.5-5.1) mmol/L Chloride 96 L (98-107) mmol/L Carbon Dioxide 31 H (22-30) mmol/L Anion Gap 7 mmol/L BUN 10 (7-17) mg/dL Creatinine 0.34 L (0.52-1.04) mg/dL Est GFR (CKD-EPI)AfAm >90 (>60 ml/min/1.73 sqM) Est GFR (CKD-EPI)NonAf >90 (>60 ml/min/1.73 sqM) Glucose 111 H (74-99) mg/dL Plasma Lactic Acid José 1.7 (0.7-2.0) mmol/L Calcium 8.7 (8.4-10.2) mg/dL Total Bilirubin 1.8 H (0.2-1.3) mg/dL AST 55 H (14-36) U/L ALT 27 (9-52) U/L Alkaline Phosphatase 238 H (38-126) U/L Troponin I (0.000-0.034) ng/mL NT-Pro-B Natriuret Pep pg/mL Total Protein 7.0 (6.3-8.2) g/dL Albumin 3.5 (3.5-5.0) g/dL Lipase 80 (23-300) U/L 05/18/19 05/18/19 05/18/19 Range/Units 12:15 12:15 12:15 WBC (3.8-10.6) k/uL RBC (3.80-5.40) m/uL Hgb (11.4-16.0) gm/dL Hct (34.0-46.0) % MCV (80.0-100.0) fL MCH (25.0-35.0) pg MCHC (31.0-37.0) g/dL RDW (11.5-15.5) % Plt Count (150-450) k/uL Neutrophils % (Manual) % Lymphocytes % (Manual) % Monocytes % (Manual) % Neutrophils # (Manual) (1.3-7.7) k/uL Lymphocytes # (Manual) (1.0-4.8) k/uL Monocytes # (Manual) (0-1.0) k/uL Nucleated RBCs (0-0) /100 WBC Manual Slide Review Hypochromasia PT 11.1 (9.0-12.0) sec INR 1.0 (<1.2) APTT 25.6 (22.0-30.0) sec D-Dimer 3.46 H (<0.60) mg/L FEU Sodium (137-145) mmol/L Potassium (3.5-5.1) mmol/L Chloride (98-107) mmol/L Carbon Dioxide (22-30) mmol/L Anion Gap mmol/L BUN (7-17) mg/dL Creatinine (0.52-1.04) mg/dL Est GFR (CKD-EPI)AfAm (>60 ml/min/1.73 sqM) Est GFR (CKD-EPI)NonAf (>60 ml/min/1.73 sqM) Glucose (74-99) mg/dL Plasma Lactic Acid José (0.7-2.0) mmol/L Calcium (8.4-10.2) mg/dL Total Bilirubin (0.2-1.3) mg/dL AST (14-36) U/L ALT (9-52) U/L Alkaline Phosphatase (38-126) U/L Troponin I 0.017 (0.000-0.034) ng/mL NT-Pro-B Natriuret Pep 7320 pg/mL Total Protein (6.3-8.2) g/dL Albumin (3.5-5.0) g/dL Lipase (23-300) U/L - EKG Data EKG Comments: EKG demonstrates a sinus tachycardia with a ventricular rate of 104. TN interval 188. QRS 142. QTC of 478. There is a right bundle branch block and a left posterior fascicular block. This is compared to patient's previous EKG and right bundle branch was present Disposition Clinical Impression: Respiratory failure with hypoxia and hypercapnia, Acute exacerbation of chronic obstructive airways disease, Abdominal pain Disposition: ADMITTED IP TO THIS HOSP Condition: Serious Is patient prescribed a controlled substance at d/c from ED?: No Decision to Admit Reason: Admit from EC Decision Date: 05/18/19 Decision Time: 15:06
[2019-05-18 12:59] LABS: Partial Thromboplastin Time 25.6 sec (22.0-30.0); Prothrombin Time 11.1 sec (9.0-12.0)
[2019-05-18 13:03] LABS: AST 55 U/L (14-36); Potassium 5.2 mmol/L (3.5-5.1)
[2019-05-18 13:04] LABS: ALT 27 U/L (9-52); Alkaline Phosphatase 238 U/L (38-126)
[2019-05-18 13:08] LABS: D-Dimer 3.46 mg/L FEU (<0.60)
[2019-05-18 13:12] LABS: Lymphocytes # (M) 1.59 k/uL (1.0-4.8); Monocytes # (M) 2.07 k/uL (0-1.0); Neutrophils # (M) 8.54 k/uL (1.3-7.7); Neutrophils % (M) 70 %; Nucleated Red Blood Cells 0 /100 WBC (0-0); Total Cells Counted 100
--- NOTE | 2019-05-18 14:06 | CT ---
EXAMINATION TYPE: CT chest angio for PE DATE OF EXAM: 05/18/2019 COMPARISON: 04/15/2019 HISTORY: Hypoxia, tachycardia, active cancer CT DLP: 583.3 mGycm CONTRAST: CT chest with contrast and 3D reconstruction with MIP imaging is performed with IV Contrast, patient injected with 100 mL of Isovue 370. Contrast-enhanced CT of the chest was performed through the course of the pulmonary arteries with mendel g and mediastinal window settings submitted. 3D reconstruction with MIP imaging was also performed. PULMONARY ARTERIES: The pulmonary arteries and their major tributaries are patent. I do not see marilyn dence for sizable filling defect to suggest pulmonary embolic process. LUNGS: Innumerable pulmonary nodules are identified throughout both lung mohr which have progressed with regards to overall number and size of lesions. Largest nodule right perihilar region measures 2 cm versus 1.3 cm previously. Left lower lobe pulmonary nodule currently measures 1.8 cm versus 1.2 cm previously. There is also a new small right-sided pleural effusion. MEDIASTINUM: Thoracic aorta is of normal caliber,however, evaluation is limited given timing of the contrast bolus. If there is concern for thoracic aortic pathology consider DOR[place]. Correlate clinical ly . The heart is not enlarged. No evidence for mediastinal mass. Subcarinal adenopathy measuring 1. 3 cm. HILAR STRUCTURES: No evidence for mass. No hilar lymph nodes greater than 1 cm. UPPER ABDOMEN: Stable hepatic lesions are redemonstrated compatible with metastatic disease. The live r is incompletely imaged. Thickening left adrenal gland is stable as well as right adrenal gland with associated nodularity. IMPRESSION: 1. No evidence for Pulmonary embolism at this time.. 2. Progressive metastatic disease to the chest and most likely the liver as well. Small right-sided p leural effusion.
--- NOTE | 2019-05-18 14:14 | CT ---
EXAMINATION TYPE: CT abdomen pelvis w con DATE OF EXAM: 05/18/2019 COMPARISON: 04/11/2019 HISTORY: Abdominal pain CT DLP: 448.1 mGycm CONTRAST: CT scan of the abdomen and pelvis is performed without Oral Contrast and with IV Contrast, patient in jected with 100 mL of Isovue 370. FINDINGS: LUNG BASES-: Multiple pulmonary nodules identified. See CT chest from the same day. LIVER/GB: Innumerable pulmonary nodules and masses are identified. The findings are compatible with d iffuse metastatic disease involving all segments and lobes. There is evidence of hepatomegaly. PANCREAS: No inflammation. No distinct mass. SPLEEN: No splenic enlargement. No lesion seen. ADRENALS: Multiple bilateral adrenal nodules noted. KIDNEYS/BLADDER: Low-lying right-sided kidney. No hydronephrosis. No nephrolithiasis. Renal cystic c hanges noted. Urinary bladder grossly unremarkable. BOWEL: Normal appendix. Normal bowel caliber. No inflammation. GENITAL ORGANS: No gross abnormality. LYMPH NODES: No greater than 1cm abdominal or pelvic lymph nodes are appreciated. AORTA: No significant abnormality. OSSEOUS STRUCTURES: No significant abnormality is seen. OTHER: No significant additional abnormality is seen. IMPRESSION: 1. There is evidence of hepatomegaly with progressive hepatic metastatic disease. 2. Adrenal lesions noted likely reflective of metastatic disease.
[2019-05-18] MEDS ORDERED: NALOXONE 0.4 MG/ML 1 ML VIAL IV PRN (15:06)
[2019-05-18] MEDS ORDERED: hydrALAZINE HCL 20 MG/ML 1 ML VIAL IVP STA (15:09)
[2019-05-18] MEDS ORDERED: IPRATROPIUM-ALBUTEROL 3 ML NEB INHALATION PRN (15:10)
[2019-05-18] MEDS: CARVEDILOL 12.5 MG TAB PO SCH (17:47)
[2019-05-18] MEDS ORDERED: KETOROLAC 30 MG/ML 1 ML VIAL IVP PRN (18:00)
[2019-05-18] MEDS ORDERED: LATANOPROST 0.005% OPHTH DROPS 2.5 ML BTL BOTH EYES SCH (21:00)
[2019-05-19 06:04] LABS: Appearance,Urine Clear (Clear); Bilirubin,Urine 1+ (Negative); Blood,Urine Negative (Negative); Color,Urine Yellow; Glucose,Urine (UA) Negative (Negative); Ketones,Urine Negative (Negative); Leukocyte Esterase,Urine Negative (Negative); Mucus,Urine Rare /hpf; Nitrite,Urine Negative (Negative); Protein,Urine 1+ (Negative); RBC,Urine 5 /hpf (0-5); Squamous Epithelial Cell,Urine 4 /hpf (0-4); WBC,Urine 4 /hpf (0-5)
[2019-05-19 07:05] LABS: Specific Gravity,Urine 1.047 (1.001-1.035)
[2019-05-19] MEDS ORDERED: FORMOTEROL FUMARATE 20 MCG/2 ML NEBU INHALATION SCH (08:00)
[2019-05-19] MEDS: IPRATROPIUM 0.5 MG/2.5 ML NEBU INHALATION SCH ×3 (08:14→16:07)
[2019-05-19] MEDS: CARVEDILOL 12.5 MG TAB PO SCH (08:54)
[2019-05-19] MEDS ORDERED: hydrALAZINE HCL 25 MG TAB PO SCH (09:00)
[2019-05-19 11:59] VITALS: BP 150/60; RESP 15; TEMP 97
[2019-05-19 14:01] VITALS: PULSE 76
--- NOTE | 2019-05-19 17:32 | P.CONS ---
History of Present Illness - Reason for Consult Consult date: 05/19/19 met melanoma Requesting physician: Kaycee Harkins - Chief Complaint right abd pain - History of Present Illness Ms. Miller is a very pleasant 83-year-old female patient of Dr. Briceño who presented mid 2017 with a left thigh skin lesion that had changed in color and had begun bleeding. She had excisional biopsy on January 23, 2018, pathology showing invasive melanoma, superficial spreading, nodular type, Mansoor's level IV, 2.2 mm thickness, ulcerated, melanoma in situ at the edge, mitotic index 24/millimeters squared, positive for tumor infiltrating lymphocytes, no lymphovascular invasion. She declined referral from Dr. Prakash's office to [facility] for management. She had planned for wide excision and sentinel node biopsy, which she declined. She did well until March 2019 when she presented with right upper quadrant pain, CT chest and abdomen 04/11 revealed multiple suspicious liver lesions, scattered bilateral pulm nodules, 05/01/19 liver biopsy was positive for met melanoma. To complete staging workup she had MRI of the brain, unfortunately this did show metastasis. Patient agreed to immunotherapy treatment with single agent keytruda. She has been referred to Radiation Oncology and is supposed to see them for her first visit tomorrow. Patient states the day after 1st treatment on 05/13 she started feeling terrible, in general, she developed right abdominal pain and swelling in both of her legs. This is what brought her to the hospital. Patient denied fevers, chills, oral irritation, nausea, vomiting, her respiratory status is baseline, she denies increased wheezing, difficulty in breathing or sputum production, no acute changes in bowel or bladder habits, bleeding. 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, leaky heart valves History of Any Multi-Drug Resistant Organisms: None Reported Past Surgical History: Hysterectomy Additional Past Surgical History / Comment(s): LT carotid end., yaneli cataract, plan for liver biopsy for mass APR 23 Past Anesthesia/Blood Transfusion Reactions: No Reported Reaction Additional Past Anesthesia/Blood Transfusion Reaction / Comm: no previous blood transfusion Past Psychological History: Anxiety, Depression Smoking Status: Current every day smoker Past Alcohol Use History: None Reported Past Drug Use History: None Reported - Past Family History Father Family Medical History: No Reported History Mother Additional Family Medical History / Comment(s): GALLBLADDER PROBLEMS Sister(s) Family Medical History: Cancer Additional Family Medical History / Comment(s): NOT SURE TYPE Medications and Allergies Home Medications Medication Instructions Recorded Confirmed Type Latanoprost [Xalatan 0.005%] 1 drop BOTH EYES HS 12/04/18 05/18/19 History Carvedilol [Coreg*] 25 mg PO BID-W/MEALS tab 12/15/18 05/18/19 Rx Umeclidinium Brm/Vilanterol Tr 1 puff INHALATION RT-DAILY 04/17/19 05/18/19 Hist ory [Anoro Ellipta 62.5-25 Mcg INH] hydrALAZINE HCL 25 mg PO DAILY 04/24/19 05/18/19 History Ipratropium-Albuterol Nebulize 3 ml INHALATION RT-QID #120 05/19/19 Rx [Duoneb 0.5 mg-3 mg/3 ml Soln] ampul.neb Allergies Allergy/AdvReac Type Severity Reaction Status Date / Time alprazolam [From Xanax] AdvReac Hallucinati Verified 05/18/19 16:40 ons morphine AdvReac Hallucinati Verified 05/18/19 13:35 ons Physical Exam Vitals: Vital Signs Temp Pulse Pulse Pulse Pulse Pulse Pulse 05/19/19 13:58 80 76 87 89 05/19/19 11:57 97 F L 104 H 89 05/19/19 11:49 100 05/19/19 08:31 104 H 05/19/19 08:23 100 05/19/19 08:22 100 05/19/19 08:15 99 05/19/19 05:37 97.7 F 87 05/18/19 21:06 98 F 88 05/18/19 17:45 98 Pulse Pulse Resp BP Pulse Ox Pulse Ox Pulse Ox 05/19/19 13:58 83 90 94 L 96 05/19/19 11:57 15 150/60 05/19/19 11:49 05/19/19 08:31 05/19/19 08:23 05/19/19 08:22 05/19/19 08:15 05/19/19 05:37 18 153/62 94 L 05/18/19 21:06 20 112/56 94 L 05/18/19 17:45 91 L Pulse Ox Pulse Ox Pulse Ox Pulse Ox 05/19/19 13:58 93 L 88 L 90 L 87 L 05/19/19 11:57 05/19/19 11:49 05/19/19 08:31 05/19/19 08:23 05/19/19 08:22 05/19/19 08:15 05/19/19 05:37 05/18/19 21:06 05/18/19 17:45 Intake and Output 05/19/19 05/19/19 05/19/19 06:59 14:59 22:59 Intake Total 600 Balance 600 Intake: Oral 600 Other: Voiding Method Toilet # Voids 1 3 - Constitutional General appearance: average body habitus, cooperative, mild distress - EENT Eyes: anicteric sclerae, EOMI ENT: hearing grossly normal, normal oropharynx - Neck Neck: no lymphadenopathy - Respiratory Respiratory: bilateral: diminished - Cardiovascular Rhythm: regular Heart sounds: normal: S1, S2 Abnormal Heart Sounds: systolic murmur - Gastrointestinal General gastrointestinal: no absent bowel sounds, no decreased bowel sounds, no distended, no hepatomegaly, no hyperactive bowel sounds, normal bowel sounds, no organomegaly, no rigid, no scaphoid, soft, no splenomegaly, tenderness, no umbilical hernia, no ventral hernia Localized gastrointestinal: tender: RUQ - Neurologic Neurologic: CNII-XII intact - Musculoskeletal Musculoskeletal: strength equal bilaterally - Psychiatric Psychiatric: A&O x's 3, appropriate affect, intact judgment & insight Results CBC & Chem 7: 05/18/19 12:15 05/18/19 12:15 Labs: Abnormal Lab Results - Last 24 Hours (Table) 05/19/19 Range/Units 05:00 Ur Specific [place] 1.047 H (1.001-1.035) Urine Protein 1+ H (Negative) Urine Bilirubin 1+ H (Negative) Urine Mucus Rare H (None) /hpf CT scan - abdomen: report reviewed CT scan - chest: report reviewed CT scan - pelvis: report reviewed Assessment and Plan (1) Metastatic melanoma Narrative/Plan: Did review CT scans. Discussed the results with the patient. Immunotherapy is not monitored early on in treatment like this due to phenomenon of pseudo- progression. In general patient looks no worse than prior to starting. When reviewing her symptoms with her nothing was persistent or progressive therefore, not suggesting and immunotherapy type side effect/reaction. Patient will be followed up in the office prior to next cycle. Patient also has referral to Radiation Oncology for brain metastasis. Patient voiced her frustration with appointments, diagnoses, and feeling unwell, she states she has not been sick her entire life. I explained to patient that it is always her choice to decide if she wants to continue with aggressive treatment of her diseases or she can choose to treat symptoms only. I encouraged her to make decisions when she is feeling well as some of her current situation could improve with minimal effort (i.e. spontaneous resolution of the abdominal pain). Patient verbalized understanding. She will voice any questions or concerns she may have. Status: Chronic Priority: High Code(s): C79.9 - SECONDARY MALIGNANT NEOPLASM OF UNSPECIFIED SITE SNOMED Code(s): 232637871 (2) Hypoxia Narrative/Plan: O2 encouraged, pt previously resistant. Status: Chronic Priority: Medium Code(s): R09.02 - HYPOXEMIA SNOMED Code(s): 042653626
--- NOTE | 2019-05-22 12:49 | P.HPIM ---
<Christine Mckeon - Last Filed: 05/19/19 13:44> Past Medical History Past Medical History: Cancer, COPD, Eye Disorder, Osteoarthritis (OA), Vascular Disorder Additional Past Medical History / Comment(s): begining of glaucoma, melanoma with mets to liver and brain, leaky heart valves History of Any Multi-Drug Resistant Organisms: None Reported Past Surgical History: Hysterectomy Additional Past Surgical History / Comment(s): LT carotid end., yaneli cataract, plan for liver biopsy for mass APR 23 Past Anesthesia/Blood Transfusion Reactions: No Reported Reaction Additional Past Anesthesia/Blood Transfusion Reaction / Comment(s): no previous blood transfusion Past Psychological History: Anxiety, Depression Smoking Status: Current every day smoker Past Alcohol Use History: None Reported Past Drug Use History: None Reported - Past Family History Father Family Medical History: No Reported History Mother Additional Family Medical History / Comment(s): GALLBLADDER PROBLEMS Sister(s) Family Medical History: Cancer Additional Family Medical History / Comment(s): NOT SURE TYPE Medications and Allergies Home Medications Medication Instructions Recorded Confirmed Type Latanoprost [Xalatan 0.005%] 1 drop BOTH EYES HS 12/04/18 05/18/19 History Carvedilol [Coreg*] 25 mg PO BID-W/MEALS tab 12/15/18 05/18/19 Rx Umeclidinium Brm/Vilanterol Tr 1 puff INHALATION RT-DAILY 04/17/19 05/18/19 History [Anoro Ellipta 62.5-25 Mcg INH] hydrALAZINE HCL 25 mg PO DAILY 04/24/19 05/18/19 History Ipratropium-Albuterol Nebulize 3 ml INHALATION RT-QID #120 05/19/19 Rx [Duoneb 0.5 mg-3 mg/3 ml Soln] ampul.neb Allergies Allergy/AdvReac Type Severity Reaction Status Date / Time alprazolam [From Xanax] AdvReac Hallucinati Verified 05/18/19 16:40 ons morphine AdvReac Hallucinati Verified 05/18/19 13:35 ons Physical Exam Vitals: Vital Signs Temp Pulse Pulse Resp BP BP Pulse Ox 05/19/19 11:57 97 F L 104 H 89 15 150/60 05/19/19 11:49 100 05/19/19 08:31 104 H 05/19/19 08:23 100 05/19/19 08:22 100 05/19/19 08:15 99 05/19/19 05:37 97.7 F 87 18 153/62 94 L 05/18/19 21:06 98 F 88 20 112/56 94 L 05/18/19 17:45 98 91 L 05/18/19 17:01 97.4 F L 97 16 148/66 97 05/18/19 15:48 163/70 05/18/19 15:28 94 19 210/99 96 Intake and Output 05/18/19 05/19/19 05/19/19 22:59 06:59 14:59 Other: Voiding Method Toilet Toilet # Voids 1 1 Weight 61.235 kg Results CBC & Chem 7: 05/18/19 12:15 05/18/19 12:15 Labs: Abnormal Lab Results - Last 24 Hours (Table) 05/19/19 Range/Units 05:00 Ur Specific [place] 1.047 H (1.001-1.035) Urine Protein 1+ H (Negative) Urine Bilirubin 1+ H (Negative) Urine Mucus Rare H (None) /hpf Thrombosis Risk Factor Assmnt - Choose All That Apply Any of the Below Risk Factors Present?: Yes Each Factor Represents 1 point: Abnormal pulmonary function (COPD), Swollen legs (current) Other Risk Factors: Yes Each Risk Factor Represents 2 Points: Malignancy Each Risk Factor Represents 3 Points: Age 75 years or older Other congenital or acquired thrombophilia - If yes, enter type in comment: No Thrombosis Risk Factor Assessment Total Risk Factor Score: 7 Thrombosis Risk Factor Assessment Level: High Risk <Graeme Harkins - Last Filed: 05/22/19 12:49> History of Present Illness Chief Complaint: Abdominal pain She is an 83-year-old white female with anxiety and metastatic melanoma to the liver. She was recently sent for immunotherapy treatment on May 13. After that she began experiencing significant edema in her lower extremities abdominal pain. She is noted abdominal mass. This brought her to the emergency room for this. She reports symptoms were worse. She denied any chest pains pressures shortness of breath, melanotic stool or hematochezia and melena. She has chronic hypoxia that was worse on ER visit. Her nearly refuses to wear oxygen. At the time of my visit this morning, she was feeling all better. She is noted to have a large abdominal mass most likely from liver metastases. Requesting to be discharged home. Review of Systems All systems: negative Physical Exam GENERAL: Fatigue and in no acute distress. HEAD: Atraumatic, normocephalic. EYES: Pupils equal round and reactive to light, extraocular movements intact, sclera anicteric, conjunctiva are normal. ENT:nares patent, oropharynx clear without exudates. Moist mucous membranes. NECK: Normal range of motion, supple without lymphadenopathy or JVD, no thyromegaly LUNGS: Breath sounds are symmetric for exchange bilaterally consistent with her significant COPD. HEART: Regular rate and rhythm without murmurs, rubs or gallops.S1S2 Normal ABDOMEN: Soft, nontender, normoactive bowel sounds. No guarding, no rebound. He is a large right upper and midline abdominal mass consistent with liver metastases and hepatomegaly. EXTREMITIES: Normal range of motion, +1 pitting edema noted to lower extremities. No clubbing or cyanosis. NEUROLOGICAL: Cranial nerves II through XII grossly intact. Normal speech, normal gait. PSYCH: Normal mood, normal affect. SKIN: Warm, Dry, normal turgor, no rashes or lesions noted. Results CBC & Chem 7: 05/18/19 12:15 05/18/19 12:15 CT scan - chest: report reviewed (No PE, progressive metastatic disease in the chest and liver) Thrombosis Risk Factor Assmnt - DVT/VTE Prophylaxis DVT/VTE Prophylaxis: Pharmacologic Prophylaxis ordered Assessment and Plan (1) Lung metastases Status: Acute Code(s): C78.00 - SECONDARY MALIGNANT NEOPLASM OF UNSPECIFIED LUNG SNOMED Code(s): 23373740 (2) Liver metastases Status: Acute Code(s): C78.7 - SECONDARY MALIG NEOPLASM OF LIVER AND INTRAHEPATIC BILE DUCT SNOMED Code(s): 84346958 (3) Abdominal pain Status: Acute Code(s): R10.9 - UNSPECIFIED ABDOMINAL PAIN SNOMED Code(s): 98653891 (4) COPD (chronic obstructive pulmonary disease) Status: Acute Code(s): J44.9 - CHRONIC OBSTRUCTIVE PULMONARY DISEASE, UNSPECIFIED SNOMED Code(s): 02643566 (5) Respiratory failure with hypoxia and hypercapnia Status: Acute Code(s): J96.91 - RESPIRATORY FAILURE, UNSPECIFIED WITH HYPOXIA; J96.92 - RESPIRATORY FAILURE, UNSPECIFIED WITH HYPERCAPNIA SNOMED Code(s): 61402678 (6) Hypoxia Status: Chronic Priority: Medium Code(s): R09.02 - HYPOXEMIA SNOMED Code(s): 065039921 (7) Metastatic melanoma Status: Chronic Priority: High Code(s): C79.9 - SECONDARY MALIGNANT NEOPLASM OF UNSPECIFIED SITE SNOMED Code(s): 773380066 Plan: I will consult hematology oncology, with the significant improvement of her pain, we'll plan on her being discharged home later and being discharged home oxygen. Follow-up in the office in the next several days
--- NOTE | 2019-05-22 12:50 | P.DS ---
Providers Date of admission: 05/18/19 15:06 Expected date of discharge: 05/19/19 Attending physician: Graeme Harkins Consults: 05/18/19 15:07 Consult Physician Urgent Consulting Provider: Vishal Briceño Consult Reason/Comments: metastatic melanoma Do you want consulting provider notified?: Yes Primary care physician: Graeme Harkins - Discharge Diagnosis(es) (1) Lung metastases Status: Acute (2) Liver metastases Status: Acute (3) Abdominal pain Status: Acute (4) COPD (chronic obstructive pulmonary disease) Status: Acute (5) Respiratory failure with hypoxia and hypercapnia Status: Acute (6) Hypoxia Status: Chronic Priority: Medium (7) Metastatic melanoma Status: Chronic Priority: High Hospital Course: She is an 83-year-old white female with anxiety and metastatic melanoma to the liver. She was recently sent for immunotherapy treatment on May 13. After that she began experiencing significant edema in her lower extremities abdominal pain. She is noted abdominal mass. This brought her to the emergency room for this. She reports symptoms were worse. She denied any chest pains pressures shortness of breath, melanotic stool or hematochezia and melena. She has chronic hypoxia that was worse on ER visit. Her nearly refuses to wear oxygen. At the time of my visit this morning, she was feeling all better. She is noted to have a large abdominal mass most likely from liver metastases. Requesting to be discharged home. Patient Condition at Discharge: Serious Plan - Discharge Summary Discharge Rx Participant: No New Discharge Prescriptions: New Ipratropium-Albuterol Nebulize [Duoneb 0.5 mg-3 mg/3 ml Soln] 3 ml INHALATION RT-QID #120 ampul.neb Continue Latanoprost [Xalatan 0.005%] 1 drop BOTH EYES HS Carvedilol [Coreg*] 25 mg PO BID-W/MEALS tab Umeclidinium Brm/Vilanterol Tr [Anoro Ellipta 62.5-25 Mcg INH] 1 puff INHALATION RT-DAILY hydrALAZINE HCL 25 mg PO DAILY Discharge Medication List Latanoprost [Xalatan 0.005%] 1 drop BOTH EYES HS 12/04/18 [History] Carvedilol [Coreg*] 25 mg PO BID-W/MEALS tab 12/15/18 [Rx] Umeclidinium Brm/Vilanterol Tr [Anoro Ellipta 62.5-25 Mcg INH] 1 puff INHALATION RT-DAILY 04/17/19 [History] hydrALAZINE HCL 25 mg PO DAILY 04/24/19 [History] Ipratropium-Albuterol Nebulize [Duoneb 0.5 mg-3 mg/3 ml Soln] 3 ml INHALATION RT-QID #120 ampul.neb 05/19/19 [Rx] Follow up Appointment(s)/Referral(s): [facility] [NON-STAFF] - 1 Week Graeme Harkins MD [Primary Care Provider] - 05/25/19 11:30 am (Please schedule appointment for Saturday with either Dr. Harkins for [place].) Patient Instructions/Handouts: COPD (Chronic Obstructive Pulmonary Disease) (DC), Acute Abdominal Pain (DC), Acute Respiratory Failure (ED) Activity/Diet/Wound Care/Special Instructions: 2 L nasal cannula O2. Denies pain. Pain management to be discussed at Dr. Harkins's office on Saturday. Knee-high compression hose to be sent home with patient Discharge Disposition: HOME SELF-CARE
== END 2019-05-19 16:00 | disposition home or self-care (01) ==
LOC: EC 10:45 → 3NMEDONC 15:06
PROVIDERS: ADMIT Family Medicine; ATTEND Family Medicine
DX: R10.31 Right lower quadrant pain (principal); C78.7 Secondary malignant neoplasm of liver and intrahepatic bile duct; C79.31 Secondary malignant neoplasm of brain; C78.00 Secondary malignant neoplasm of unspecified lung; C43.72 Malignant melanoma of left lower limb, including hip; J44.1 Chronic obstructive pulmonary disease with (acute) exacerbation; J96.92 Respiratory failure, unspecified with hypercapnia; J96.91 Respiratory failure, unspecified with hypoxia; R00.0 Tachycardia, unspecified; H40.9 Unspecified glaucoma; M19.90 Unspecified osteoarthritis, unspecified site; I99.9 Unspecified disorder of circulatory system; I08.9 Rheumatic multiple valve disease, unspecified; F41.9 Anxiety disorder, unspecified; F32.9 Major depressive disorder, single episode, unspecified; I45.2 Bifascicular block; F17.200 Nicotine dependence, unspecified, uncomplicated; Z79.899 Other long term (current) drug therapy; Z88.8 Allergy status to other drugs, medicaments and biological substances; Z88.5 Allergy status to narcotic agent; Z90.710 Acquired absence of both cervix and uterus; Z98.890 Other specified postprocedural states; Z98.42 Cataract extraction status, left eye; Z98.41 Cataract extraction status, right eye; Z83.79 Family history of other diseases of the digestive system; Z80.9 Family history of malignant neoplasm, unspecified
CPT/HCPCS: 96374; 96375; 99285; 36415; 94640 ×3; 93005; 85379; 83880; 80053; 83605; 83690; 84484 ×2; 85025; 85610; 85730; 81001; 71275; 74177; G0378 ×2; J0360; J1885; Q9967